=== PATIENT | male | born 1950 | race Caucasian/White ===

== ENCOUNTER 2020-07-17 08:56 | Emergency (ER) | payer OTHER, SELFPAY ==
--- NOTE | 2020-07-17 | XR_ITS ---
WS: [id number] RIGHT FOREARM 2 VIEWS HISTORY: FALL COMPARISON: None available. No fracture or dislocation. No foreign body or joint effusion. XR/XR forearm RT 2V [id number] IMPRESSION: Normal RIGHT forearm.
[2020-07-17 08:57] VITALS: BP 173/94; PULSE 76; RESP 16; O2SAT 97; BMI 24.3
--- NOTE | 2020-07-17 09:00 | CT_ITS ---
WS: [id number] CT HEAD NONCONTRAST HISTORY: Closed head injury. TECHNIQUE: Contiguous axial imaging performed through the brain in 2.5 mm imaging. Bone and soft tiss ue windows. Sagittal and coronal reformats reviewed. All CT scans at [facility] use at ast one of these dose optimization techniques: automated exposure control; mA and/or kV adjustment pe r patient size (includes targeted exams where dose is matched to clinical indication); or iterative r econstruction. DLP: 869.99 mGy.cm COMPARISON: None available. No acute intracranial hemorrhage, midline shift or mass effect. Mild atrophy and mild chronic microvascular ischemic disease. Ventricles: Normal size with no hydrocephalus. Paranasal sinuses: Mild diffuse nuchal periosteal thickening throughout the sinuses. No air-fluid lev els. Mastoid air cells: Well pneumatized. Calvarium and scalp: No fracture. Significant soft tissue injury and laceration over the RIGHT fronta l bone. Laceration extends to the calvarium. CT/CT head wo con* [id number] IMPRESSION: 1. No acute intracranial hemorrhage. 2. Significant soft tissue laceration extending to the calvarium centered over the RIGHT frontal bone. No skull fracture.
[2020-07-17 09:02] VITALS: BP 170/94; PULSE 74; RESP 16; O2SAT 99
[2020-07-17] MEDS: tetanus-dipt-pertussis 0.5 mL SDV IM (09:39)
--- NOTE | 2020-07-17 09:41 | ED_ITS ---
Documented by User: Vinay Mondragon DO 07/17/20 11:10 HPI - Wound/Laceration General: Chief Complaint: Wound/Laceration Stated Complaint: LACERATION Time Seen by Provider: 07/17/20 08:57 History of Present Illness: HPI narrative: 69-year-old male who was working and hit his head on the rack of a forklift. He is a large avulsion on forehead. There is no loss consciousness bleeding is well controlled is not on any blood thinners. He is unsure of his last tetanus. He does complain of some R wrist pain as well. Onset (ago): minute(s) Location: face Extremity Location: Right: forearm Place: work Patient tetanus UTD: No Context: accidental Associated symptoms: Reports pain; Denies chills, fever(s), foreign body sensation, inability to move, nausea, numbness, syncope or vomiting Review of Systems Const: Denies: fever(s) or chills ENMT: Denies: throat pain, ear or mastoid pain, nasal discharge or nasal congestion Card: Denies: syncope Resp: Denies: dyspnea, productive cough or non-productive cough GI: Denies: nausea or vomiting : Denies: flank pain, dysuria, urinary frequency or urinary urgency Skin/Breast: Denies: rash or pruritus Physical Exam Const: COMMON NORMALS: no acute distress GENERAL APPEARANCE: cooperative and comfortable ORIENTATION/CONSCIOUSNESS: Yes awake, Yes oriented to person, Yes oriented to place and Yes oriented to time HENMT: COMMON NORMALS: normocephalic and hearing grossly normal bilaterally HEAD & SCALP: normocephalic FACE & SINUS IMAGES: 1. Eye: COMMON NORMALS: Equal, round and reactive pupils present, EOMs intact bilaterally, conjunctivae normal and no scleral icterus CONJUNCTIVA: Yes conjunctivae normal PUPIL: Yes Equal, round and reactive pupils present Neck/C-Spine: COMMON NORMALS: full ROM, no lymphadenopathy, supple and no JVD Resp: COMMON NORMALS: normal respiratory effort, No retractions, No use of accessory muscles and clear to auscultation bilaterally AUSCULTATION: clear to auscultation bilaterally Cardio: COMMON NORMALS: no JVD, regular rate, regular rhythm and No murmurs present (Cardio) RATE: regular rate RHYTHM: regular rhythm GI: COMMON NORMALS: Soft to palpation and No hepatosplenomegaly present AUSCULTATION: Yes normoactive bowel sounds PALPATION: Yes Soft to palpation, No Tenderness to palpation present (GI), No Guarding due to palpation present (GI) and Yes No hepatosplenomegaly present Extremity: COMMON NORMALS: normal to inspection, capillary refill normal, no clubbing, cyanosis or edema, no calf tenderness and no pedal edema Neuro: SENSORIUM/ORIENTATION: Yes oriented to person, Yes oriented to place and Yes oriented to time Skin: NARRATIVE SKIN EXAM: Forehead laceration with no active bleeding. Course Vital Signs: Vital signs: Vital Signs Pulse Rate 76 07/17/20 10:50 Respiratory Rate 12 07/17/20 10:50 Blood Pressure 125/83 07/17/20 10:50 Pulse Oximetry 97 07/17/20 10:50 MDM - Wound/Laceration MDM Narrative: Medical decision making narrative: Wound sutured by midlevel. Evaluated wound after the suture wound wound edges well approximated no signs of active bleeding. Wound care instructions given sutures removed in 7 to 10 days. Discharge Plan Discharge Patient Disposition: Home Clinical Impression: Laceration Condition: Stable Prescriptions: New mupirocin 2 % ointment 1 applic topical BID Qty: 22 RF: 0 Discharge Orders: Discharge ED (Routine); Ordered 07/17/20 Ordered By: Vinay Mondragon Referrals: Yunior Caraballo [Primary Care Provider] - Patient Instructions: Opioid Safety Activity Restrictions/Additional Instructions: Routine wound care apply clean dressing daily. Apply topical ointment to laceration and abraded areas once daily. Sutures out in 7 to 10 days. Coding Level of Care Code ED Datapower Developer for Chg Fwd Exam Comprehensive Documented by User: DEANNA Neely 07/17/20 10:15 HPI - Wound/Laceration General: Chief Complaint: Wound/Laceration Stated Complaint: LACERATION Time Seen by Provider: 07/17/20 08:57 Physical Exam HENMT: HEAD & SCALP: other (upside down V shaped flap laceration to central forehead) FACE & SINUS IMAGES: 1. Procedures Laceration Laceration 1: Site: scalp Size (cm): 9.0 Description: linear and flap Depth: simple, single layer Local Anesthetic: lidocaine 1% and with epi Amount of anesthesia used (mL): 4.0 Pre-repair: wound explored and irrigated extensively Skin layer closed with: nylon Size (cm): 5-0 Number of sutures: 14 Technique: simple, interrupted Course Vital Signs: Vital signs: Vital Signs Pulse Rate 76 07/17/20 10:50 Respiratory Rate 12 07/17/20 10:50 Blood Pressure 125/83 07/17/20 10:50 Pulse Oximetry 97 07/17/20 10:50 MDM - Wound/Laceration MDM Narrative: Medical decision making narrative: I was consulted by Dr. Mondragon to repair patient's forehead laceration. This was completed as documented. Other than laceration repair, I did not actively participate in patient's care. Discharge Plan Discharge Patient Disposition: Home Clinical Impression: Laceration Condition: Stable Prescriptions: New mupirocin 2 % ointment 1 applic topical BID Qty: 22 RF: 0 Discharge Orders: Discharge ED (Routine); Ordered 07/17/20 Ordered By: Vinay Mondragon Referrals: Yunior Caraballo [Primary Care Provider] - Patient Instructions: Opioid Safety Activity Restrictions/Additional Instructions: Routine wound care apply clean dressing daily. Apply topical ointment to laceration and abraded areas once daily. Sutures out in 7 to 10 days. Coding Level of Care Code ED Datapower Developer for [place] Fwd Exam Comprehensive
[2020-07-17] MEDS: ceFAZolin 1,000 mg SDV 1000 MG IVP (09:46)
[2020-07-17] MEDS: lidocaine 2% INJ 20 mL INJECTION (09:47)
[2020-07-17 10:50] VITALS: BP 125/83; PULSE 76; RESP 12; O2SAT 97
--- NOTE | 2020-07-17 10:50 | PC.NURSE ---
Pts head was bandaged with 4x4s, kerlix, and coban.
--- NOTE | 2020-07-27 08:20 | PC.NURSE ---
Removed patients sutures and applied new bandage. Wound appears to be healing well
== END 2020-07-17 10:53 | disposition home or self-care (01) ==
PROVIDERS: Emergency Provider Family Medicine; PCP Family Medicine
DX: S01.81XA Laceration without foreign body of other part of head, initial encounter (principal); W22.8XXA Striking against or struck by other objects, initial encounter; Z23 Encounter for immunization
CPT/HCPCS: 12015; 70450; 73090; 90471; 90715; 96374; 99283; J0690

== ENCOUNTER → 2020-11-09 08:43 | Outpatient (BNVA) | payer OTHER, SELFPAY | PROVIDERS: PCP Family Medicine; Visit Provider Surgery | DX: K40.20 Bilateral inguinal hernia, without obstruction or gangrene, not specified as recurrent (principal); Z20.822 Contact with and (suspected) exposure to COVID-19 | CPT/HCPCS: 87635 ==

== ENCOUNTER 2020-11-15 05:44 | Day surgery (SDC) | payer OTHER, SELFPAY ==
[2020-11-14 13:13] VITALS: BMI 24.3
[2020-11-15] VITALS (8 sets, daily range): BP systolic 107–150; BP diastolic 65–80; PULSE 62–79; RESP 17–19; TEMP 36.2–36.8; O2SAT 95–97
[2020-11-15] MEDS: sodium chloride 0.9% 1,000 ML 30 ML IV (06:25)
--- NOTE | 2020-11-15 06:52 | W.PM.OPSUD ---
Surgery/Procedure H&P Update DATE OF PROCEDURE: November 15, 2020 DATE H&P PERFORMED: 10/24/20 H&P UPDATE INFORMATION: I have reviewed H&P completed within last 30 days, I have examined patient prior to procedure and No changes to prior documentation PREOP DIAGNOSIS: Bilateral inguinal hernia PLANNED PROCEDURE: Operation Date: 11/15/20 07:00 Proposed Procedures p lap poss open bilateral inguinal hernia 22218 k40.20(Bilateral) - Agustin Rodriguez MD
--- NOTE | 2020-11-15 07:01 | ANES.PREANE2 ---
Pre-Anesthetic Assessment Pre-Anesthetic Assessment: Height/Weight: Height 1.88 m Weight 86.183 kg Temp Pulse Resp BP Pulse Ox 97.6 F 79 18 150/80 97 11/15/20 06:21 11/15/20 06:21 11/15/20 06:21 11/15/20 06:21 11/15/20 06:21 Preop Diagnosis: Bilateral inguinal hernia Proposed Procedure: Operation Date: 11/15/20 07:00 Proposed Procedures p lap poss open bilateral inguinal hernia 25224 k40.20(Bilateral) - Agustin Rodriguez MD Was Beta Chavez taken within 24 hours: Yes Was Clonidine taken within 24 hours: N/A Last intake: Intake Last Liquid Date 11/14/20 Last Liquid Time 18:00 Last Solid Date 11/14/20 Last Solid Time 18:00 Social: Social History: No alcohol and No tobacco Exam: Pre-Anes Outpt Exam: alert, oriented x 3, clear to auscultation bilaterally and regular rate & rhythm Airway: Submandibular: WNL Cervical ROM: WNL MP: 2 Dentition: False CV/HEM: CV/HEM: HTN GI: GI: GERD Metabolic: Metabolic: Hyperlipidemia Anesthetic Plan: ASA status: 2 Anesthesia: General Risk of > 500 ml blood loss (7ml/kg in children): No Meds/Allergies Current Medications: Current Medications Generic Name Dose Route Start Last Admin Trade Name Freq PRN Reason Stop Dose Admin Sodium Chloride 1,000 mls @ 30 ml s/hr 11/15/20 06:15 11/15/20 06:25 Sodium Chloride 0.9% IV 11/16/20 06:14 30 mls/hr .Q24H REBA Administration PFSH Anesthesia PFSH: Medical History Hx of colonic polyp Surgical History Hx of nasal polypectomy Status post colonoscopy Family History Father CAD (coronary artery disease) Family history of premature coronary artery disease Hypertension Hyperlipidemia Sister CAD (coronary artery disease) Mother Hypertension Denies family history of Diabetes Clotting disorder Dementia Psychiatric illness Chronic kidney disease (CKD) Suicide Anesthesia complication Bleeding disorder Lung disease Cancer Stroke Social History Smoking and tobacco status: current every day smoker cigarettes [ Other cigarette details: 3 packs a week ] Alcohol intake: never Data Anesthesia Cardiac Studies: No Data to Display
--- NOTE | 2020-11-15 08:39 | P.OP_ITS ---
Operative Report Date of procedure: November 15, 2020 Pre-op Diagnosis: Bilateral inguinal hernia Post-op Diagnosis: 1. Large indirect left inguinal hernia 2. Small direct right inguinal hernia Procedure Done: Laparoscopic total extraperitoneal repair of left indirect and right direct inguinal hernia with 15 x 10 cm Ultrapro mesh x 2 Pathology: none sent Surgeon: Agustin Rodriguez Anesthesia: General Estimated blood loss (mL): 10 Condition: stable Disposition: PACU Procedure: The patient was taken to the operating room. After IV antibiotic was administered, the abdomen was prepped and draped in a sterile manner. Using a 15 blade, a 1.0 cm transverse incision was made infraumbilically on the left side. Subcutaneous tissue was divided using electrocautery and the anterior rectus sheath divided using an 11 blade. The rectus muscle was retracted laterally and the extraperitoneal space identified. A balloon dissector was insufflated under direct visualization to dissect the extraperitoneal space. A 11 mm port was placed and 15 mm of pneumoperitoneum was created. A 10 mm 30? scope was introduced and the retrorectus space was opened using the camera up to the pubic symphysis and 5 mm ports were placed in the midline, one 2- fingerbreadths above the pubic symphysis and the other midway between these two ports under direct visualization. Blunt dissection was carried out to open up the tissue in the midline and to the pubic symphysis, which was identified. The dissection was then carried laterally on the left where the iliopubic tract was identified. There was no femoral, obturator or direct hernia noted. The inferior epigastric artery was identified and dissection was carried posterior to it and laterally, the space was opened up to the level of the umbilicus superior to the anterior superior iliac spine. I then proceeded to dissect out the spermatic cord and the large indirect hernial sac was reduced . The dissection was carried laterally on the right side where the iliopubic tract was identified. There was no femoral or obturator hernia noted. There was a small direct hernia which was reduced. The inferior epigastric artery was identified and dissection was carried posterior to it and laterally, the space was opened up to the level of the umbilicus superior to the anterior superior iliac spine. I then proceeded to dissect out the spermatic cord and there was no indirect hernia. 15 x 10cm Ultrapro mesh was rolled and introduced through the 10 mm port and then rolled laterally and apposed well against the abdominal wall to cover the myopectineal orifice completely on the left side and secured with Securestraps. Another 15 x 10cm Ultrapro mesh was rolled and introduced through the 10 mm port and rolled laterally and apposed well against the abdominal wall to cover the myopectineal orifice completely on the right side and secured with Securestraps. 10 Cc of 0.5% Marcaine was infiltrated into the preperitoneal space. The extraperitoneal space was desufflated under direct visualization to ensure no slippage of hernial sac under the mesh. All ports were removed, the anterior rectus fascia at the infraumbilical port closed using figure of eight 0 Vicryl sutures, subcutaneous tissue approximated using 3-0 Vicryl sutures and skin at all three port sites were closed using running subcuticular 4-0 Monocryl sutures and Dermabond. 10 mL of 0.5% Marcaine was infiltrated at the port sites. The patient was stable throughout the procedure, extubated and transferred to recovery room.
[2020-11-15] MEDS: HYDROcodone-acetaminophen 5-325 mg Tablet 1 TAB PO (09:02)
[2020-11-15] MEDS: ondansetron 2 mg/ML SDV 2 mL 4 MG IVP (09:17)
--- NOTE | 2020-11-15 14:00 | ANE.PACU2 ---
Inpatient post-anesthesia follow up: Airway intact: Yes Vital signs: Temperature 97.6 F Pulse Rate 69 Respiratory Rate 18 Blood Pressure 128/75 Pulse Oximetry 96 Oxygen Delivery Me thod Room Air Oxygen Flow Rate 6 Fraction of Inspir ed Oxygen Hydration adequate: Yes Nausea and vomiting: No Pain level: 1 Mental status: Baseline
== END 2020-11-15 09:31 | disposition home or self-care (01) ==
PROVIDERS: PCP Family Medicine; Visit Provider Surgery
PROC: (CPT 49650; principal; 2020-11-15 07:00)
DX: K40.20 Bilateral inguinal hernia, without obstruction or gangrene, not specified as recurrent (principal); I10 Essential (primary) hypertension; K21.9 Gastro-esophageal reflux disease without esophagitis; E78.5 Hyperlipidemia, unspecified; Z86.010 Personal history of colon polyps; F17.210 Nicotine dependence, cigarettes, uncomplicated
CPT/HCPCS: 49650; 96372; J0690; J1100; J2405; J2704; J2710; J3010; J3490; J7030

== ENCOUNTER 2021-06-21 15:04 | Outpatient (CLI) | payer OTHER, SELFPAY ==
--- NOTE | 2021-06-21 15:12 | XR_ITS ---
WS: [id number] Exam: XR chest 2V* [id number] Date/Time of Exam: 06/21/2021 3:20 PM Reason For Exam: Shortness of breath Comparison 05/09/2021. The lungs are fully expanded and clear. Normal cardiomediastinal silhouette and regional bony element s. Scattered calcified granulomas. XR/XR chest 2V* [id number] IMPRESSION: 1. No acute cardiopulmonary finding. No change.
[2021-06-21 16:03] LABS: Basophils % 0.4 %; Eosinophils # 0.4 10^3/uL (0.0-0.8); Eosinophils % 4.7 %; Hematocrit 44.1 % (42.0-52.0); Hemoglobin 14.7 g/dL (11.7-16.6); Lymphocytes # 3.9 10^3/uL (0.8-4.8); Lymphocytes % 41.1 %; Mean Corpuscular HGB Conc 33.3 g/dL (30.0-36.0); Mean Corpuscular Hemoglobin 30.5 pg (28.0-34.0); Mean Corpuscular Volume 91.5 fl (80-94); Mean Platelet Volume 9.4 fL (7.4-10.4); Monocytes # 0.8 10^3/uL (0.2-0.9); Monocytes % 8.6 %; Neutrophils # 4.24 10^3/uL (1.8-7.7); Neutrophils % 45.1 %; Nucleated Red Blood Cells % 0 %; Platelet Count 279 10^3/cmm (130-400); Red Blood Count 4.82 10^6/uL (4.1-5.3); Red Cell Distribution Width 13.6 % (12.1-15.1); White Blood Count 9.4 10^3/uL (4.0-10.0)
[2021-06-22 14:33] LABS: Alternaria Alternata (M6) Ige <0.10 kU/L; Alternaria Class 0; Bermuda Class 0; Bermuda Grass (G2) Ige <0.10 kU/L; Cat Dander (E1) Ige <0.10 kU/L; Cat Dander Class 0; Common Ragweed (Short) (W1) Ig 1.27 kU/L; D. Farinae Class 1; Dermatophagoides Class 1; Dermatophagoides Farinae (D2) 0.42 kU/L; Dermatophagoides Pteronyssinus 0.52 kU/L; Dog Dander (E5) Ige <0.10 kU/L; Dog Dander Class 0; Elm (T8) Ige <0.10 kU/L; Elm Class 0; English Plantain (W9) Ige <0.10 kU/L; English Plantain Class 0; House Dust (Greer) (H1) Ige <0.10 kU/L; House Dust (Hollister- Stier) <0.10 kU/L; House Dust Class 0; Immunoglobulin E 21 kU/L (<OR=114); Immunoglobulin E 23 kU/L (<OR=114); Johnson Grass (G10) Ige <0.10 kU/L; Johnson Grass Cl 0; June Grass Class 0; June Grass(Kentucky Blue) (G8) <0.10 kU/L; Lamb'S Quarters (Goose Foot) <0.10 kU/L; Lamb'S Quarters Class 0; Maple (Box Elder) (T1) Ige <0.10 kU/L; Maple Class 0; Meadow Fescue (G4) Ige <0.10 kU/L; Meadow Fescue Class 0; Mucor Racemosus Class 0; Oak (T7) Ige <0.10 kU/L; Oak Class 0; Orchard Grass (Cocksfoot) (G3) <0.10 kU/L; Penicillium Class 0; Penicillium Notatum (M1) Ige <0.10 kU/L; Perennial Rye Grass (G5) Ige <0.10 kU/L; Perennial Rye Grass Class 0; Ragweeed Class 2; Rough Marsh Elder (W16) Ige <0.10 kU/L; Rough Marsh Elder Class 0; Sweet Vernal Class 0; Sweet Vernal Grass (G1) Ige <0.10 kU/L; Timothy Grass (G6) Ige <0.10 kU/L; Timothy Grass Class 0
== END 2021-06-21 15:05 | disposition home or self-care (01) ==
LOC: RAD 15:08
PROVIDERS: PCP Family Medicine; Visit Provider Internal Medicine Critical Care Medicine
DX: R06.02 Shortness of breath (principal); J45.909 Unspecified asthma, uncomplicated
CPT/HCPCS: 36415; 71046; 82785; 85025; 86003

== ENCOUNTER → 2021-08-27 12:05 | Outpatient (BNVA) | payer OTHER, SELFPAY | PROVIDERS: PCP Family Medicine; Visit Provider Internal Medicine Critical Care Medicine | DX: J45.909 Unspecified asthma, uncomplicated (principal); J84.10 Pulmonary fibrosis, unspecified | CPT/HCPCS: 99213; 99214 ==

== ENCOUNTER 2021-09-25 10:34 | Outpatient (CLI) | payer OTHER, SELFPAY ==
--- NOTE | 2021-09-25 12:56 | PFTS_ITS ---
Date of Study:09/25/21 Date of Dictation: 09/27/2021 MECHANICS: Postbronchodilator forced vital capacity (FVC) is reduced Postbronchodilator FEV1 is reduced. FEV1/FVC is normal. There is significant response to bronchodilators FLOW VOLUME LOOP: normal . LUNG VOLUMES: Total lung capacity (TLC) is moderately reduced. Residual volume (RV) is reduced. DIFFUSING CAPACITY FOR CARBON MONOXIDE: Mildly reduced . INTERPRETATION: The spirometry is suggestive of moderate restriction. There is significant response to bronchodilators.? Lung volumes are moderately reduced.? Mild gas transfer defect. correlate clinically MTDD
== END 2021-09-25 10:35 | disposition home or self-care (01) ==
LOC: RT 10:35
PROVIDERS: PCP Family Medicine; Visit Provider Internal Medicine Critical Care Medicine
DX: J45.909 Unspecified asthma, uncomplicated (principal)
CPT/HCPCS: 94060; 94726; 94729; J7611

== ENCOUNTER 2021-10-10 09:49 | Emergency (ER) | payer OTHER, SELFPAY ==
[2021-10-10 10:12] VITALS: BP 161/87; PULSE 71; RESP 18; TEMP 36.6; O2SAT 98; BMI 25.7
[2021-10-10 10:29] LABS: Glucose Urine UA Norm (Normal); Ketones Urine 1+ (Negative); Protein Urine Trace (Negative); Urine Appearance Clear (CLEAR); Urine Color Yellow (Yellow); pH Urine 5 (5-7)
[2021-10-10 10:30] LABS: Add Urine Microscopic? YES; Bilirubin Urine Neg (Negative); Blood Urine 2+ (Negative); Leukocyte Esterase Urine Trace (Negative); Nitrate Urine Negative (Negative); Urobilinogen Urine Norm (Negative)
[2021-10-10 10:32] LABS: Renal Epithelial Cells Urine N /hpf; WBC Urine 0-4 /hpf (0-5)
[2021-10-10 10:34] LABS: Mucus Urine 1+ /hpf
[2021-10-10 10:36] LABS: Add Urine Culture? Yes
--- NOTE | 2021-10-10 10:48 | CT_ITS ---
WS: [id number] CT ABDOMEN AND PELVIS WITH CONTRAST HISTORY: unexplained hematuria TECHNIQUE: Imaging performed of the abdomen and pelvis with IV contrast. Single phase imaging of the abdomen. Coronal and sagittal reformats are submitted. All CT scans at [facility] use at [address] one of these dose optimization techniques: automated exposure control; mA and/or kV adjustment per patient size (includes targeted exams where dose is matched to clinical indication); or iterative re construction. IV CONTRAST: Omnipaque 300; 50 mL IV. Oral contrast: No DLP: 2184.2 mGy.cm COMPARISON: None available. Lower thorax: Lung bases are clear. Heart is normal size. No hiatal hernia. Liver/biliary system: Normal size liver with numerous granulomata. No mass identified. No bile duct d ilatation. Gallbladder: Normal. No gallstones or wall thickening. No pericholecystic fluid. Pancreas: Normal size pancreas and pancreatic duct. No adjacent inflammation. Spleen: Numerous granulomata. Adrenal glands: Normal. Right kidney: Normal size kidney with very mild cortical lobulation. No mass or calcification or obst ruction. Left kidney: There are 2 cortical hypodense lesions in the mid to upper kidney. The largest measures 11 mm. These are not completely cystic by CT. No renal obstruction or ureteral calcification. Aorta: Mild atherosclerosis with no aneurysm. Lymphadenopathy: None. Free fluid: None. GI tract: Stomach is mildly distended. There is mild diffuse wall thickening of the stomach but no ma ss identified. In part this may be due to underdistention. No small bowel obstruction. The appendix i s normal. Normal appearance of the nondistended colon. Abdominal wall: Unremarkable abdominal wall. No hernia. Pelvis: Well-distended urinary bladder. There is minimal prostate gland encroachment into the base of the bladder. There is some very minima l wall thickening involving the posterior RIGHT lateral base of the bladder. Prostate gland appears s eparate with the fat plane the prostate from the bladder. This could be a very early bladd er lesion. On the coronal imaging this nodule measures approximately 7 mm. Bones: Degenerative disc disease is moderate at L4-5 and L5-S1. CT/CT abdomen pelvis w con* [id number] IMPRESSION: 1. No renal obstruction or hydronephrosis. 2. Two hypodense lesions in the LEFT kidney. These may be complex cysts but wi ll need further evaluation to exclude early malignancy. 3. Mild thickening with enhancement and nodularity involving the RIGHT posteri or base of the urinary bladder. Focal nodule seen best on the coronal imaging m easures 7 mm. Early bladder neoplasm is not excluded. Recommend urological eval uation. 4. Minimal prostate gland enlargement. 5. Normal appendix. 6. Hepatic and splenic granulomata. 7. Sigmoid diverticula without acute diverticulitis.
[2021-10-10 11:12] LABS: Basophils % 0.3 %; Eosinophils # 0.4 10^3/uL (0.0-0.8); Eosinophils % 4.2 %; Hematocrit 42.7 % (42.0-52.0); Hemoglobin 14.5 g/dL (11.7-16.6); Lymphocytes # 3.4 10^3/uL (0.8-4.8); Lymphocytes % 38.8 %; Mean Corpuscular Hemoglobin 30.6 pg (28.0-34.0); Mean Corpuscular Volume 90.1 fl (80-94); Mean Platelet Volume 9.4 fL (7.4-10.4); Monocytes # 0.9 10^3/uL (0.2-0.9); Monocytes % 9.6 %; Neutrophils # 4.14 10^3/uL (1.8-7.7); Neutrophils % 46.9 %; Nucleated Red Blood Cells % 0 %; Platelet Count 234 10^3/cmm (130-400); Red Blood Count 4.74 10^6/uL (4.1-5.3); Red Cell Distribution Width 14.9 % (12.1-15.1); White Blood Count 8.8 10^3/uL (4.0-10.0)
[2021-10-10 11:27] VITALS: BP 161/87; PULSE 71; RESP 18; O2SAT 98
[2021-10-10 11:28] LABS: Alanine Aminotransferase 25 U/L (0-41); Albumin Level 4.1 g/dL (3.5-5.2); Alkaline Phosphatase 75 IU/L (40-130); Anion Gap 13.8 (5-19); Aspartate Amino Transferase 31 U/L (0-40); Blood Urea Nitrogen 22 mg/dL (8-23); Calcium 9.3 mg/dL (8.5-10.5); Carbon Dioxide 26 mmol/L (22-29); Chloride 100 mmol/L (98-107); Globulin 3.3 g/dL (1.3-4.6); Glucose 107 mg/dL (65-115); Osmolality Calculated 286 mOsm/kg (285-295); Potassium 3.8 mmol/L (3.5-5.1); Sodium 136 mmol/L (136-145); Total Bilirubin 0.4 mg/dL (0.15-1.2); Total Protein 7.4 g/dL (6.6-8.7)
[2021-10-10] MEDS: iohexol 300 mg/mL 100 mL Btl IV (11:54)
--- NOTE | 2021-10-10 12:00 | W.ED.MALEGU ---
HPI - Male Genitourinary General: Chief complaint: Urogenital-Male Stated complaint: blood in urine/back pain Time Seen by Provider: 10/10/21 11:14 History of Present Illness: 70-year-old male presents with complaint of 1 month of intermittent gross hematuria. This has gotten a lot worse in the last 24 hours. Patient reports this morning after he went to the bathroom he noticed some dripping of blood out of his penis. He is an occasional smoker. He does not have any known history of kidney stones. He has had about 7 out of 10 back pain which is nonspecific in the low middle back. He has not had any previous work-up for this. He denies difficulty urinating. This morning he had burning with urination. He has not on any anticoagulation. He does not have a family history of any renal cell carcinoma. Associated symptoms: Deny nausea or vomiting Review of Systems General: Reports: 10 or more systems reviewed and unremarkable except in HPI and below Const: Denies: fever(s), chills or body aches Card: Denies: chest pain, edema or syncope Resp: Denies: dyspnea or productive cough GI: Denies: abdominal pain, nausea, vomiting or diarrhea Musc: Denies: neck pain, extremity pain or extremity swelling Skin/Breast: Denies: rash or erythema Neuro: Denies: headache(s), numbness in extremities or weakness in extremities PFSH ED PFSH: Medical History Hx of colonic polyp Surgical History Hx of nasal polypectomy S/P bilateral inguinal hernia repair (11/15/20) Status post colonoscopy Family History Father CAD (coronary artery disease) Family history of premature coronary artery disease Hypertension Hyperlipidemia Sister CAD (coronary artery disease) Mother Hypertension Denies family history of Diabetes Clotting disorder Dementia Psychiatric illness Chronic kidney disease (CKD) Suicide Anesthesia complication Bleeding disorder Lung disease Cancer Stroke Social History Smoking and tobacco status: current some day smoker cigarettes [ Other cigarette details: 3 packs a week] Alcohol intake: never Physical Exam Const: COMMON NORMALS: no limitations, alert and well nourished EXAM LIMITATIONS: no altered mental status GENERAL APPEARANCE: cooperative and well developed ORIENTATION/CONSCIOUSNESS: Yes awake; not confused HENMT: COMMON NORMALS: normocephalic, atraumatic, external ears normal and Normal external nose present HEAD & SCALP: normocephalic and atraumatic NOSE: Normal external nose present EXTERNAL EAR: Yes external ears normal Eye: COMMON NORMALS: EOMs intact bilaterally and conjunctivae normal CONJUNCTIVA: Yes conjunctivae normal Neck/C-Spine: COMMON NORMALS: no JVD Resp: COMMON NORMALS: normal respiratory effort, No use of accessory muscles and clear to auscultation bilaterally EFFORT & INSPECTION: Yes able to speak in complete sentences and Yes symmetric chest movement AUSCULTATION: clear to auscultation bilaterally Cardio: COMMON NORMALS: no JVD, regular rate and regular rhythm RATE: regular rate RHYTHM: regular rhythm GI: COMMON NORMALS: Soft to palpation INSPECTION: Yes normal to inspection PALPATION: Yes Soft to palpation, No Tenderness to palpation present (GI) and No Guarding due to palpation present (GI) Back/Pelvis: COMMON NORMALS: thoraco-lumbar ROM normal Extremity: COMMON NORMALS: normal to inspection GENERAL: Yes normal exam except as noted Neuro: COMMON NORMALS: moves all extremities, no focal motor deficits and no sensory deficits noted SENSORIUM/ORIENTATION: Yes alert Psych: COMMON NORMALS: mental status grossly normal, Normal thought process present, cooperative, normal affect and speech normal SPEECH: Yes normal speech THOUGHT PROCESS: Normal thought process present Skin: COMMON NORMALS: no rashes or lesions noted, turgor normal and no jaundice GENERAL SKIN EXAM: no rashes or lesions noted and turgor normal Course Vital Signs: Vital signs: Vital Signs Temperature 97.8 F 10/10/21 10:12 Pulse Rate 71 10/10/21 11:27 Respiratory Rate 18 10/10/21 11:27 Blood Pressure 161/87 10/10/21 11:27 Pulse Oximetry 98 10/10/21 11:27 [facility] - Male Medical Decision Making 70-year-old male with gross hematuria. He has had back pain for about 1 month. Today he developed dysuria along with increased gross hematuria. His urine analysis obtained in triage does not show any urinary tract infection but does demonstrate red blood cells. The differential diagnosis would include bladder cancer, cystitis, ureterolithiasis, renal cell carcinoma, other renal pathology, prostatitis, renal infarct, partial urethral obstruction, other. Will obtain CT scan of the abdomen pelvis with contrast to evaluate for the aforementioned pathologies. If this is negative, patient will need to be referred to a urologist for uroscopy. Medical Records CT scan demonstrated mild thickening with enhancement and nodularity involving the right posterior base of the urinary bladder. There is also 2 hypodense lesions in the left kidney that could be complex cysts but need further evaluation to exclude early malignancy. The patient's bladder was distended on CT scan however he was able to urinate again in the emergency department. He said he had some stinging but there was no further gross hematuria. I discussed the case with Dr. Hidalgo, urology. Dr. Hidalgo has accepted the patient in follow-up. Patient will be discharged at this time. His aspirin will be held. Lab Data : 10/10/21 11:00 10/10/21 11:00 Radiology Impressions Abdomen/Pelvis CT 10/10/21 10:48 IMPRESSION: 1. No renal obstruction or hydronephrosis. 2. Two hypodense lesions in the LEFT kidney. These may be complex cysts but will need further evaluation to exclude early malignancy. 3. Mild thickening with enhancement and nodularity involving the RIGHT posterior base of the urinary bladder. Focal nodule seen best on the coronal imaging measures 7 mm. Early bladder neoplasm is not excluded. Recommend urological evaluation. 4. Minimal prostate gland enlargement. 5. Normal appendix. 6. Hepatic and splenic granulomata. 7. Sigmoid diverticula without acute diverticulitis. Laboratory Results WBC 8.8 10^3/uL (4.0-10.0) 10/10/21 11:00 RBC 4.74 10^6/uL (4.1-5.3) 10/10/21 11:00 Hgb 14.5 g/dL (11.7-16.6) 10/10/21 11:00 Hct 42.7 % (42.0-52.0) 10/10/21 11:00 MCV 90.1 fl (80-94) 10/10/21 11:00 MCH 30.6 pg (28.0-34.0) 10/10/21 11:00 MCHC 34.0 g/dL (30.0-36.0) 10/10/21 11:00 RDW 14.9 % (12.1-15.1) 10/10/21 11:00 Plt Count 234 10^3/cmm (130-400) 10/10/21 11:00 MPV 9.4 fL (7.4-10.4) 10/10/21 11:00 Neut % (Auto) 46.9 % 10/10/21 11:00 Lymph % (Auto) 38.8 % 10/10/21 11:00 [place] % (Auto) 9.6 % 10/10/21 11:00 Eos % (Auto) 4.2 % 10/10/21 11:00 Baso % (Auto) 0.3 % 10/10/21 11:00 Neut # (Auto) 4.14 10^3/uL (1.8-7.7) 10/10/21 11:00 Lymph # (Auto) 3.4 10^3/uL (0.8-4.8) 10/10/21 11:00 [place] # (Auto) 0.9 10^3/uL (0.2-0.9) 10/10/21 11:00 Eos # (Auto) 0.4 10^3/uL (0.0-0.8) 10/10/21 11:00 Baso # (Auto) 0.0 10^3/uL (0.0-0.1) 10/10/21 11:00 Nucleated RBC % (auto) 0 % 10/10/21 11:00 Nucleated RBCs # 0.0 /100WBC 10/10/21 11:00 Sodium 136 mmol/L (136-145) 10/10/21 11:00 Potassium 3.8 mmol/L (3.5-5.1) 10/10/21 11:00 Chloride 100 mmol/L (98-107) 10/10/21 11:00 Carbon Dioxide 26 mmol/L (22-29) 10/10/21 11:00 Anion Gap 13.8 (5-19) 10/10/21 11:00 BUN 22 mg/dL (8-23) 10/10/21 11:00 Creatinine 1.1 mg/dL (0.7-1.2) 10/10/21 11:00 GFR Calculation Not Reportable 10/10/21 11:00 Glucose 107 mg/dL (65-115) 10/10/21 11:00 Calculated Osmolality 286 mOsm/kg (285-295) 10/10/21 11:00 Calcium 9.3 mg/dL (8.5-10.5) 10/10/21 11:00 Total Bilirubin 0.4 mg/dL (0.15-1.2) 10/10/21 11:00 AST 31 U/L (0-40) 10/10/21 11:00 ALT 25 U/L (0-41) 10/10/21 11:00 Alkaline Phosphatase 75 IU/L (40-130) 10/10/21 11:00 Total Protein 7.4 g/dL (6.6-8.7) 10/10/21 11:00 Albumin 4.1 g/dL (3.5-5.2) 10/10/21 11:00 Globulin 3.3 g/dL (1.3-4.6) 10/10/21 11:00 Urine Color Yellow (Yellow) 10/10/21 10:00 Urine Appearance Clear (CLEAR) 10/10/21 10:00 Urine pH 5 (5-7) 10/10/21 10:00 Ur Specific [place] 1.020 (1.005-1.030) 10/10/21 10:00 Urine Protein Trace (Negative) 10/10/21 10:00 Urine Glucose (UA) Norm (Normal) 10/10/21 10:00 Urine Ketones 1+ (Negative) H 10/10/21 10:00 Urine Blood 2+ (Negative) H 10/10/21 10:00 Urine Nitrate Negative (Negative) 10/10/21 10:00 Urine Bilirubin Neg (Negative) 10/10/21 10:00 Urine Urobilinogen Norm mg/dL (Negative) 10/10/21 10:00 Ur Leukocyte Esterase Trace (Negative) H 10/10/21 10:00 Urine RBC 10-15 /hpf (0-2) H 10/10/21 10:00 Urine WBC 0-4 /hpf (0-5) H 10/10/21 10:00 Ur Squamous Epith Cells None /hpf (0-5) 10/10/21 10:00 Ur Transition Epith Cell None /hpf 10/10/21 10:00 Ur Renal Epithelial Cell N /hpf 10/10/21 10:00 Amorphous Sediment Not Reportable 10/10/21 10:00 Urine Bacteria None /hpf (NONE) 10/10/21 10:00 Urine Mucus 1+ /hpf 10/10/21 10:00 Discharge Plan Discharge Patient Disposition: Home Clinical Impression: Hematuria Condition: Stable Prescriptions: Held aspirin 81 mg Capsule,Delayed Release(Dr/Ec) PO 0RF Hold Instructions: Resume on 10/17/21. Hold until after seeing Dr Hidalgo No Action albuterol sulfate 90 mcg/actuation HFA aerosol inhaler 2 puff inhalation Q6H PRN0RF cetirizine 10 mg tablet 10 mg PO DAILY PRN0RF docusate sodium [Colace] 100 mg capsule 100 mg PO BID 0RF fluticasone propion-salmeterol [Advair Diskus] 250-50 mcg/dose blister with device 1 inh inhalation BID 30 Days Qty: 60 3RF clobetasol 0.05 % ointment 1 applic topical BID Qty: 60 1RF Rx Instructions: Apply to affected areas on leg no more than 3 wks/mo prn atorvastatin 40 mg Tablet 40 mg PO DAILY 0RF ketotifen fumarate 0.025 % (0.035 %) Drops 0RF chlorthalidone 25 mg Tablet 25 mg PO DAILY 0RF amlodipine 5 mg Tablet 5 mg PO DAILY 0RF allopurinol 100 mg Tablet 200 mg PO DAILY 0RF metoprolol tartrate 50 mg Tablet 25 mg PO BID 0RF lisinopril 40 mg Tablet 40 mg PO DAILY 0RF omeprazole 20 mg PO DAILY 0RF Discharge Orders: Discharge ED (Routine); Ordered 10/10/21 Ordered By: Mauri Butcher Referrals: Lindsay Barbour MD [Primary Care Provider] - Lupillo Hidalgo MD [Physician] - (Hematuria, bladder thickened) Discharge Diet: Usual diet Discharge Activity: Resume usual activity Patient Instructions: Cystoscopy, Hematuria (ED), Bladder Biopsy (DC), Opioid Safety Activity Restrictions/Additional Instructions: Hold your aspirin. Keep sidhu in place to help drain the blood and urine. Return to ER for inability to urinate, fever, or severe pain. Make appointment with Dr Hidalgo for this week. Coding Level of Care Code ED Lumber Straightened for Chg Fwd Exam Comprehensive
--- NOTE | 2021-10-11 15:47 | DCPLANNER ---
Addendum entered by Whitley Barger 10/18/21 15:01: Patient had a follow up appointment scheduled for 10.11.21 with urology - patient did attend appointment. Addendum entered by Whitley Barger 10/15/21 07:59: manager local sent patients information to [facility] with [facility] for the authorization process to get started. Original Note: manager local had message to schedule a follow up appointment for patient with urology. manager local sent patients information to the front office space at urology. Patients information will be printed and reviewed. Clinic will call patient with appointment information.
== END 2021-10-10 13:27 | disposition home or self-care (01) ==
PROVIDERS: Family Medicine; Emergency Provider Emergency Medicine; PCP Family Medicine
DX: R31.9 Hematuria, unspecified (principal); F17.210 Nicotine dependence, cigarettes, uncomplicated
CPT/HCPCS: 74177; 80053; 81001; 85025; 87086; 99283; Q9967

== ENCOUNTER → 2021-10-11 14:35 | Outpatient (BNVA) | payer OTHER, SELFPAY | PROVIDERS: PCP Family Medicine; Visit Provider Urology | DX: N32.89 Other specified disorders of bladder (principal); R31.0 Gross hematuria | CPT/HCPCS: 52000; 99202 ==

== ENCOUNTER 2022-05-06 07:29 | Outpatient (CLI) | payer OTHER, SELFPAY ==
--- NOTE | 2022-05-06 08:00 | USCV_ITS ---
Dillon Kraig Age: 71 Gender: M : 1950 Exam Date: 05/06/2022 07:52 Ordering Phys: Cody Currie MD Technologist: Ariel Tejada Exam Location: [facility] [place] Indication: sob BP: 172 / 100 HR: 68 Rhythm: Sinus Technical Quality: Adequate MEASUREMENTS (Male / Female) Normal Values 2D ECHO LV Diastolic Diameter PLAX 2.8 cm 4.2 - 5.9 / 3.9 - 5.3 cm LV Systolic Diameter PLAX 1.9 cm IVS Diastolic Thickness 0.9 cm 0.6 - 1.0 / 0.6 - 0.9 cm IVS Systolic Thickness 0.7 cm LVPW Diastolic Thickness 1.0 cm 0.6 - 1.0 / 0.6 - 0.9 cm LVPW Systolic Thickness 1.2 cm LVOT Diameter 2.0 cm LV Ejection Fraction 2D Teich 62.8 % LV Ejection Fraction MOD 2C 60.8 % LV Ejection Fraction 2C AL 59.5 % LA Diameter 4.1 cm LA Width 3.0 cm LA Height 4.7 cm RA Width 3.8 cm RA Height 4.4 cm Aorta at Sinotubular Diameter 2.3 cm IVC Diameter 1.9 cm M-MODE Aortic Annulus Diameter 2.4 cm LA Ao Ratio MM 1.9 MV E Point Septal Separation 0.5 cm DOPPLER AV Peak Velocity 105.3 cm/s LVOT Peak Velocity 100.0 cm/s AV Area Cont Eq vti 3.1 cm squared AV Area Cont Eq pk 3.0 cm squared MV Peak Velocity 94.0 cm/s MV Area PHT 8.5 cm squared Mitral E to A Ratio 0.9 MV E' Velocity 40.0 cm/s Mitral E to MV E' Ratio 8.4 Mitral E to LV E' Lateral Ratio 7.9 Mitral E to LV E' Septal Ratio 9.1 TR Peak Velocity 250.7 cm/s TR Peak Gradient 25.1 mmHg TR Mean Velocity 208.4 cm/s TR Mean Gradient 18.3 mmHg TR Velocity Time Integral 76.0 cm Right Atrial Pressure 3.0 mmHg Pulmonary Artery Systolic Pressu 28.1 mmHg PV Peak Velocity 115.0 cm/s RV Acceleration Time 0.1 s RV Ejection Time 0.2 s RV AcT/ET 0.5 FINDINGS Left Ventricle Normal left ventricular size, systolic function and wall thickness, with no regional wall motion abnormalities. Left ventricular ejection fraction is estimated at 65 %. Normal diastolic function. Right Ventricle Normal right ventricular size and systolic function. Right ventricular systolic pressure 46 mmHg. Right Atrium Normal right atrial size. Left Atrium Normal left atrial size. Mitral Valve Mild mitral annular calcification. No mitral valve stenosis. Trace mitral valve regurgitation. Aortic Valve Structurally normal trileaflet aortic valve. No aortic valve stenosis. No aortic valve regurgitation. Tricuspid Valve Structurally normal tricuspid valve. No tricuspid valve stenosis. Trace tricuspid valve regurgitation. Pulmonic Valve Pulmonic valve not well visualized. No pulmonary valve stenosis. Trace pulmonary valve regurgitation. Pericardium No pericardial effusion. Aorta Normal size aortic root and proximal ascending aorta. IVC Normal IVC dimension with >50% respiratory change of the inferior vena cava. CONCLUSIONS 1. Normal left ventricular size, systolic function and wall thickness, with no regional wall motion abnormalities. Left ventricular ejection fraction is estimated at 65 %. Normal diastolic function. 2. Normal right ventricular size and systolic function. 3. Mild pulmonary hypertension with pulmonary artery pressure estimated at 46 mm Hg. 4. No prior similar studies to compare. Hayde Mcwilliams MD (Electronically Signed) Final Date: 11 May 2022 16:03 S
== END 2022-05-06 07:30 | disposition home or self-care (01) ==
PROVIDERS: PCP Family Medicine; Visit Provider Internal Medicine Critical Care Medicine
DX: R06.02 Shortness of breath (principal); I27.20 Pulmonary hypertension, unspecified
CPT/HCPCS: 93306

== ENCOUNTER → 2022-07-01 11:12 | Outpatient (BNVA) | payer OTHER, SELFPAY | PROVIDERS: PCP Family Medicine; Visit Provider Internal Medicine Pulmonary Disease | DX: R06.02 Shortness of breath (principal); J45.909 Unspecified asthma, uncomplicated; J84.10 Pulmonary fibrosis, unspecified; J31.0 Chronic rhinitis; J32.9 Chronic sinusitis, unspecified; G47.30 Sleep apnea, unspecified; J33.9 Nasal polyp, unspecified; I27.20 Pulmonary hypertension, unspecified; F17.210 Nicotine dependence, cigarettes, uncomplicated | CPT/HCPCS: 99214 ==

== ENCOUNTER 2022-08-29 05:29 | Outpatient (CLI) | payer OTHER, SELFPAY | END 2022-08-29 05:30 | disposition home or self-care (01) | LOC: SLEEP 08-30 05:30 | PROVIDERS: PCP Family Medicine; Visit Provider Internal Medicine Pulmonary Disease | DX: R06.83 Snoring (principal); R53.83 Other fatigue; G47.33 Obstructive sleep apnea (adult) (pediatric) | CPT/HCPCS: 95810 ==

== ENCOUNTER → 2022-10-07 10:36 | Outpatient (BNVA) | payer OTHER, SELFPAY | PROVIDERS: PCP Family Medicine; Visit Provider Dermatology | DX: L57.0 Actinic keratosis (principal); L82.1 Other seborrheic keratosis; L81.4 Other melanin hyperpigmentation; L57.8 Other skin changes due to chronic exposure to nonionizing radiation; Z85.828 Personal history of other malignant neoplasm of skin; Z87.891 Personal history of nicotine dependence | CPT/HCPCS: 17000; 17003; 99213 ==

== ENCOUNTER → 2022-10-10 13:30 | Outpatient (BNVA) | payer OTHER, SELFPAY | PROVIDERS: PCP Family Medicine; Visit Provider Urology | DX: R31.0 Gross hematuria (principal) | CPT/HCPCS: 51741; 51798; 81003; 99213 ==

== ENCOUNTER → 2022-11-12 15:09 | Outpatient (BNVA) | payer OTHER, SELFPAY | PROVIDERS: PCP Family Medicine; Visit Provider Internal Medicine Pulmonary Disease | DX: J45.909 Unspecified asthma, uncomplicated (principal); J84.10 Pulmonary fibrosis, unspecified; J31.0 Chronic rhinitis; J32.9 Chronic sinusitis, unspecified; G47.30 Sleep apnea, unspecified; J33.8 Other polyp of sinus; F17.210 Nicotine dependence, cigarettes, uncomplicated | CPT/HCPCS: 99214 ==

== ENCOUNTER 2023-06-15 10:04 | Emergency (ER) | payer OTHER, SELFPAY ==
[2023-06-15 10:11] VITALS: BP 139/109; PULSE 148; RESP 16; TEMP 37.1; O2SAT 98; BMI 26.3
--- NOTE | 2023-06-15 10:19 | W.ED.ARRPALP ---
HPI - Arrhythmia/Palpitations General: Chief Complaint: Arrhythmia/Palpitations Stated Complaint: high pulse Time Seen by Provider: 06/15/23 10:17 History of Present Illness: 72-year-old male presents emergency department stating that he has had feelings like his heart has been racing for the previous 2 days. He states this occurs intermittently. He states he has not had any recent medication changes and has no known reasons for his heart feeling like it is racing. He denies chest pain or shortness of breath at present. He denies nausea vomiting fevers chills or night sweats. Review of Systems General: Reports: 10 or more systems reviewed and unremarkable except in HPI and below Card: Reports: palpitations PFSH ED PFSH: Medical History Hx of colonic polyp Surgical History Hx of nasal polypectomy S/P bilateral inguinal hernia repair (11/15/20) Status post colonoscopy Family History Father CAD (coronary artery disease) Family history of premature coronary artery disease Hypertension Hyperlipidemia Sister CAD (coronary artery disease) Mother Hypertension Denies family history of Diabetes Clotting disorder Dementia Psychiatric illness Chronic kidney disease (CKD) Suicide Anesthesia complication Bleeding disorder Lung disease Cancer Stroke Social History Smoking and tobacco/nicotine status: current every day tobacco/nicotine user (1 pack per week) cigarettes [ Other cigarette details: 3 packs a week] Alcohol intake: never Substance/Drug Use: never Marital status: Current occupational status: employed Physical Exam Narrative: EXAM NARRATIVE: Constitutional: the patient appears well nourished and with normal development. Vital signs reviewed as documented. HENMT: Normocephalic, atraumatic. External ears normal appearance without drainage. Nose without drainage, normal appearance. Mucus membranes moist. Neck is supple, No jugular venous distension, trachea is midline, no appreciable carotid bruits. No lymphadenopathy. No meningeal signs. Flexion, extension and lateral rotation is without pain. Eyes: Pupils are equal, round, reactive to light and accommodation. No scleral icterus. Extra-ocular movement are intact. Thorax is symmetrical and with equal rise and fall with respirations. Resp: Lungs are clear to auscultation. No wheezes, rales, crackles or ronchi at present. Cardio: Regular rate and rhythm. Positive S1, S2. No appreciable murmurs, rubs or gallops. GI: Abdominal exam reveals normal bowel sounds to all quadrants. No organomegaly. No obvious palpable masses noted. No hepatomegally appreciated. Soft, non-tender to palpation. Extremity: Extremities are non-edematous and both femoral and pedal pulses are 2+ and equal bilaterally. Moves all extremities well, sensation in all extremities. Neuro: Alert and oriented x4, person, place, time and situation. Cranial nerves II through XII are grossly intact, there is no focal neurological deficits that I can appreciate at present. Motor strength in the upper and lower extremities are equal and bilateral 5/5. Psych: Cooperative, calm, normal thought process, appropriate judgment. Skin: No lesions, rashes. No gross abnormalities noted. Back: Symmetrical, no obvious deformity, No CVA tenderness Course Vital Signs: Vital signs: Vital Signs Temperature 98.7 F 06/15/23 13:12 Pulse Rate 98 06/15/23 13:12 Respiratory Rate 16 06/15/23 13:12 Blood Pressure 123/85 06/15/23 13:12 Pulse Oximetry 97 06/15/23 13:12 Oxygen Delivery Me thod Room Air 06/15/23 12:10 MDM - Arrhythmia/Palpitations Medical Decision Making 72-year-old male presents emergency department with complaints of palpitations I will obtain a twelve-lead EKG serial cardiac enzymes chest x-ray CBC and CMP to check for electrolytes. Differential diagnosis includes electrolyte abnormality, new onset cardiac abnormality, Medical Records I reviewed the patient's medical records. Lab Data I reviewed the patient's lab results. 06/15/23 10:29 06/15/23 10:29 Radiology Impressions Chest X-Ray 06/15/23 10:21 IMPRESSION: No acute findings. Laboratory Results WBC 12.93 10^3/uL (3.29-11.43) H 06/15/23 10:29 RBC 5.01 10^6/uL (3.85-5.65) 06/15/23 10:29 Hgb 15.90 g/dL (11.27-16.99) 06/15/23 10:29 Hct 46.5 % (37-53) 06/15/23 10: MCV 92.8 fl (82-101) 06/15/23 10: MCH 31.7 pg (27-33) 06/15/23 10: MCHC 34.2 g/dL (30-55) 06/15/23 10: RDW 14.8 % (12.1-15.1) 06/15/23 10: Plt Count 244 10^3/cmm (157-399) 06/15/23 10:29 MPV 9.9 fL (7.4-10.4) 06/15/23 10:29 Neut % (Auto) 62.5 % 06/15/23 10:29 Lymph % (Auto) 30.6 % 06/15/23 10:29 [place] % (Auto) 5.3 % 06/15/23 10:29 Eos % (Auto) 1.1 % 06/15/23 10: Baso % (Auto) 0.3 % 06/15/23 10:29 Neut # (Auto) 8.07 10^3/uL (1.8-7.7) H 06/15/23 10:29 Lymph # (Auto) 4.0 10^3/uL (0.8-4.8) 06/15/23 10:29 [place] # (Auto) 0.7 10^3/uL (0.2-0.9) 06/15/23 10:29 Eos # (Auto) 0.1 10^3/uL (0.0-0.8) 06/15/23 10:29 Baso # (Auto) 0.0 10^3/uL (0.0-0.1) 06/15/23 10:29 Nucleated RBC % (auto) 0 % 06/15/23 10: Nucleated RBCs # 0.0 /100WBC 06/15/23 10:29 Sodium 139 mmol/L (136-145) 06/15/23 10:29 Potassium 3.9 mmol/L (3.5-5.1) 06/15/23 10:29 Chloride 103 mmol/L (98-107) 06/15/23 10:29 Carbon Dioxide 22 mmol/L (22-29) 06/15/23 10:29 Anion Gap 17.9 (5-19) 06/15/23 10:29 BUN 23 mg/dL (8-23) 06/15/23 10: Creatinine 1.4 mg/dL (0.7-1.2) H 06/15/23 10:29 GFR Calculation Not Reportable 06/15/23 10: Glucose 184 mg/dL (65-115) H 06/15/23 10:29 Calculated Osmolality 296 mOsm/kg (285-295) H 06/15/23 10:29 Calcium 9.9 mg/dL (8.5-10.5) 06/15/23 10: Total Bilirubin 0.5 mg/dL (0.15-1.2) 06/15/23 10: AST 32 U/L (0-40) 06/15/23 10: ALT 27 U/L (0-41) 06/15/23 10: Alkaline Phosphatase 87 U/L (40-130) 06/15/23 10:29 Troponin T Baseline 20 ng/L (0-15) H 06/15/23 10: Troponin T 120 Minute 20.81 ng/L (0-15) H 06/15/23 12:29 Delta Troponin T 0.81 ABS# (0-10) 06/15/23 12:29 NT-Pro-B Natriuret Pep 42 pg/mL (0-125) 06/15/23 10:29 Total Protein 7.2 g/dL (6.6-8.7) 06/15/23 10: Albumin 4.1 g/dL (3.5-5.2) 06/15/23 10: Globulin 3.1 g/dL (1.3-4.6) 06/15/23 10:29 TSH 1.64 uIU/mL (0.27-4.20) 06/15/23 10:29 Urine Color Yellow (Yellow) 06/15/23 11:54 Urine Appearance Clear (CLEAR) 06/15/23 11:54 Urine pH 5 (5-7) 06/15/23 11:54 Ur Specific [place] 1.010 (1.005-1.030) 06/15/23 11:54 Urine Protein Trace (Negative) 06/15/23 11:54 Urine Glucose (UA) Norm (Normal) 06/15/23 11:54 Urine Ketones Negative (Negative) 06/15/23 11:54 Urine Blood Neg (Negative) 06/15/23 11:54 Urine Nitrate Negative (Negative) 06/15/23 11:54 Urine Bilirubin Neg (Negative) 06/15/23 11:54 Urine Urobilinogen 1 mg/dL (Negative) H 06/15/23 11:54 Ur Leukocyte Esterase Negative (Negative) 06/15/23 11:54 Urine RBC None /hpf (0-2) 06/15/23 11:54 Urine WBC 0-4 /hpf (0-5) H 06/15/23 11:54 Ur Squamous Epith Cells None /hpf (0-5) 06/15/23 11:54 Amorphous Sediment Not Reportable 06/15/23 11:54 Urine Bacteria Trace /hpf (NONE) 06/15/23 11:54 Hyaline Casts 5-10 /lpf H 06/15/23 11:54 Urine Mucus Trace /hpf 06/15/23 11:54 All radiology interpretation(s) finalized by discharge EKG Data EKG 1: Interpretation: Twelve-lead EKG obtained at 1034 and reviewed at 1034 demonstrates sinus tachycardia with a ventricular rate of 127, CA interval 138, QRS duration 93, QT 316 QTc [address] elevation or depression to demonstrate acute ischemia or infarction at present. Other EKG comments: Chest X-Ray 06/15/23 10:21 IMPRESSION: No acute findings. Discharge Plan Discharge Patient Disposition: Home Clinical Impression: Heart palpitations, Tachycardia Condition: Stable Prescriptions: No Action albuterol sulfate 90 mcg/actuation HFA aerosol inhaler 2 puff inhalation Q6H PRN (Reason: Shortness Of Breath Or Wheezing) cetirizine 10 mg tablet 10 mg PO DAILY PRN (Reason: Allergy Symptoms) Breztri Aerosphere 160-9-4.8 mcg/actuation HFA aerosol inhaler 2 inh inhalation BID Qty: 10.7 6RF omega 3-bms-uwv-fish oil [Fish Oil] 60-90-500 mg capsule 1 cap PO BID (DME) Auto C-Pap 6-16 CM H2O See Rx Instructions .Route .MEDSUPPLY Qty: 1 0RF Rx Instructions: As directed azelastine-fluticasone 137-50 mcg/spray spray,non-aerosol 1 spray intranasal BID Qty: 23 5RF Rx Instructions: administer into each nostril montelukast [Singulair] 10 mg tablet 10 mg PO DAILY Qty: 30 3RF atorvastatin 40 mg Tablet 40 mg PO DAILY chlorthalidone 25 mg Tablet 25 mg PO DAILY amlodipine 5 mg Tablet 5 mg PO DAILY metoprolol tartrate 50 mg Tablet 50 mg PO BID lisinopril 40 mg Tablet 40 mg PO DAILY allopurinol 100 mg tablet 100 mg PO DAILY Aspir-81 81 mg Tablet,Delayed Release (Dr/Ec) 81 mg PO DAILY omeprazole 20 mg Capsule,Delayed Release(Dr/Ec) 20 mg PO DAILY Discharge Orders: Discharge ED (Routine); Ordered 06/15/23 Ordered By: Jarvis Jerez Referrals: Lindsay Barbour MD [Primary Care Provider] - Discharge Diet: Advance as tolerated Discharge Activity: Resume usual activity Patient Instructions: Opioid Safety, Pain Management Activity Restrictions/Additional Instructions: Activity Restrictions/Additional Instructions: Thank you for choosing [facility] for your healthcare needs today. Please realize that you were seen in the Emergency Department and that we are providing you with an emergency medical screening exam and this may not be a complete and all inclusive of all the testing and or medical work-up that you may need to determine your ailment or severity of your illness. It is very important that you follow-up as instructed with your Primary care provider or Specialist for additional evaluation and to discuss your medical treatment plan. You may return to the Emergency Department should you have concerns or if your condition changes or worsens in any way. Coding Level of Care Code ED Narcotics And Vice Detective for Lopez Gonzalez
--- NOTE | 2023-06-15 10:21 | XRR_ITS ---
PROCEDURE INFORMATION: Exam: XR Chest Exam date and time: 06/15/2023 10:35 AM Age: 72 years old Clinical indication: Other: Palpitations TECHNIQUE: Imaging protocol: Radiologic exam of the chest. Views: 2 views. COMPARISON: CR XR chest 2V* [id number] 06/21/2021 3:20 PM FINDINGS: Lungs: No consolidation. Pleural spaces: No pleural effusion. No pneumothorax. Heart/Mediastinum: No cardiomegaly. Bones/joints: No acute findings. XR/XR chest 2V* [id number] IMPRESSION: No acute findings.
--- NOTE | 2023-06-15 10:22 | ECG_ITS ---
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 Measurements Intervals [place] Rate: 127 P: 60 MS: 135 QRS: 68 QRSD: 98 T: 62 QT: 317 QTc: 461 Interpretive Statements SINUS TACHYCARDIA WITH OCCASIONAL VENTRICULAR PREMATURE COMPLEXES NONSPECIFIC ST & T-WAVE ABNORMALITY No previous ECG available for comparison Electronically Signed On 06-16-2023 7:55:10 PRODUCT ENGINEER by Ellis Fitzgerald M.D. [id number]
[2023-06-15 10:34] LABS: Basophils % 0.3 %; Eosinophils # 0.1 10^3/uL (0.0-0.8); Eosinophils % 1.1 %; Hematocrit 46.5 % (37-53); Lymphocytes % 30.6 %; Mean Corpuscular HGB Conc 34.2 g/dL (30-55); Mean Corpuscular Hemoglobin 31.7 pg (27-33); Mean Corpuscular Volume 92.8 fl (82-101); Mean Platelet Volume 9.9 fL (7.4-10.4); Monocytes # 0.7 10^3/uL (0.2-0.9); Monocytes % 5.3 %; Neutrophils # 8.07 10^3/uL (1.8-7.7); Neutrophils % 62.5 %; Nucleated Red Blood Cells % 0 %; Platelet Count 244 10^3/cmm (157-399); Red Blood Count 5.01 10^6/uL (3.85-5.65); Red Cell Distribution Width 14.8 % (12.1-15.1); White Blood Count 12.93 10^3/uL (3.29-11.43)
[2023-06-15] MEDS: sodium chloride 0.9% 1,000 ML 999 ML IV (10:52)
[2023-06-15] MEDS: metoprolol tartrate 1 mg/1 mL SDV 5 mL 2.5 MG IVP (10:53)
[2023-06-15 10:58] LABS: Troponin(5th) Baseline 20 ng/L (0-15)
[2023-06-15 11:01] VITALS: BP 135/83; PULSE 106; RESP 15; O2SAT 98
[2023-06-15 11:05] LABS: Alanine Aminotransferase 27 U/L (0-41); Albumin Level 4.1 g/dL (3.5-5.2); Alkaline Phosphatase 87 U/L (40-130); Aspartate Amino Transferase 32 U/L (0-40); Blood Urea Nitrogen 23 mg/dL (8-23); Calcium 9.9 mg/dL (8.5-10.5); Carbon Dioxide 22 mmol/L (22-29); Chloride 103 mmol/L (98-107); Globulin 3.1 g/dL (1.3-4.6); Glucose 184 mg/dL (65-115); NT Pro B Type Natriuretic Pept 42 pg/mL (0-125); Osmolality Calculated 296 mOsm/kg (285-295); Sodium 139 mmol/L (136-145); Thyroid Stimulating Hormone 1.64 uIU/mL (0.27-4.20); Total Bilirubin 0.5 mg/dL (0.15-1.2); Total Protein 7.2 g/dL (6.6-8.7)
[2023-06-15 11:20] LABS: Anion Gap 17.9 (5-19); Potassium 3.9 mmol/L (3.5-5.1)
[2023-06-15] MEDS: metoprolol tartrate 1 mg/1 mL SDV 5 mL 5 MG IVP (11:29)
[2023-06-15 11:57] VITALS: BP 123/85; PULSE 99; RESP 16; O2SAT 100
[2023-06-15 12:10] VITALS: PULSE 98; RESP 16; O2SAT 97
--- NOTE | 2023-06-15 12:22 | ECG_ITS ---
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 Measurements Intervals [place] Rate: 127 P: 59 [place]: 138 QRS: 66 QRSD: 93 T: 62 QT: 316 QTc: 459 Interpretive Statements SINUS TACHYCARDIA NONSPECIFIC ST & T-WAVE ABNORMALITY No previous ECG available for comparison Electronically Signed On 06-16-2023 8:04:25 MACHINE ATTENDANT by Ellis Fitzgerald M.D. [id number]
[2023-06-15 12:23] LABS: Add Urine Microscopic? YES; Bilirubin Urine Neg (Negative); Blood Urine Neg (Negative); Glucose Urine UA Norm (Normal); Ketones Urine Negative (Negative); Leukocyte Esterase Urine Negative (Negative); Nitrate Urine Negative (Negative); Protein Urine Trace (Negative); Urine Appearance Clear (CLEAR); Urine Color Yellow (Yellow); Urobilinogen Urine 1 mg/dL (Negative); pH Urine 5 (5-7)
[2023-06-15 12:24] LABS: Add Urine Culture? No; Bacteria Urine TRACE /hpf; Mucus Urine TRACE /hpf; WBC Urine 0-4 /hpf (0-5)
[2023-06-15 13:12] VITALS: BP 123/85; PULSE 98; RESP 16; TEMP 37.1; O2SAT 97
[2023-06-15 13:13] LABS: Troponin 5 2HR 20.81 ng/L (0-15); Troponin 5 2HR Delta 0.81 ABS# (0-10)
== END 2023-06-15 13:13 | disposition home or self-care (01) ==
PROVIDERS: Emergency Provider Internal Medicine; PCP Family Medicine
DX: R00.0 Tachycardia, unspecified (principal); R00.2 Palpitations; Z79.82 Long term (current) use of aspirin; Z72.0 Tobacco use
CPT/HCPCS: 36415; 71046; 80053; 81001; 83880; 84443; 84484; 85025; 93005; 96374; 96376; 99285; J3490; J7030

== ENCOUNTER → 2023-07-16 09:00 | Outpatient (BNVA) | payer OTHER, SELFPAY | PROVIDERS: PCP Family Medicine; Visit Provider Internal Medicine Pulmonary Disease | DX: J45.909 Unspecified asthma, uncomplicated (principal); J84.10 Pulmonary fibrosis, unspecified; J31.0 Chronic rhinitis; J32.9 Chronic sinusitis, unspecified; G47.30 Sleep apnea, unspecified | CPT/HCPCS: 99204 ==

== ENCOUNTER → 2023-07-24 14:23 | Outpatient (BNVA) | payer OTHER, SELFPAY | PROVIDERS: PCP Family Medicine; Referring Provider Family Medicine; Visit Provider Internal Medicine Cardiovascular Disease | DX: I49.1 Atrial premature depolarization (principal); I49.3 Ventricular premature depolarization | CPT/HCPCS: 93246 ==

== ENCOUNTER → 2023-10-13 13:54 | Outpatient (BNVA) | payer OTHER, SELFPAY | PROVIDERS: PCP Family Medicine; Visit Provider Nurse Practitioner Family | DX: L57.0 Actinic keratosis (principal); L57.8 Other skin changes due to chronic exposure to nonionizing radiation; L81.4 Other melanin hyperpigmentation; D22.4 Melanocytic nevi of scalp and neck | CPT/HCPCS: 17000; 99213 ==

== ENCOUNTER → 2024-10-12 08:54 | Outpatient (BNVA) | payer OTHER, SELFPAY | PROVIDERS: PCP Family Medicine; Visit Provider Nurse Practitioner Family | DX: L82.1 Other seborrheic keratosis (principal); L57.8 Other skin changes due to chronic exposure to nonionizing radiation; L81.4 Other melanin hyperpigmentation; Z08 Encounter for follow-up examination after completed treatment for malignant neoplasm; Z85.828 Personal history of other malignant neoplasm of skin; L57.0 Actinic keratosis | CPT/HCPCS: 17000; 99213 ==

== ENCOUNTER 2024-11-03 11:38 | Emergency (ER) | payer OTHER, SELFPAY ==
[2024-11-03] VITALS (7 sets, daily range): BP systolic 100–138; BP diastolic 62–73; PULSE 69–87; RESP 16; TEMP 36.7; O2SAT 98–99
--- NOTE | 2024-11-03 12:03 | ECG_ITS ---
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
--- NOTE | 2024-11-03 12:24 | XR_ITS ---
WS: [id number] XR chest 1V portable [id number] REASON FOR EXAM: dyspnea/cough FINDINGS: Chest is unchanged compared to 06/15/2023. The heart and mediastinum are within normal limits. There is calcified granulomatous disease in both hemithoraces. No pulmonary parenchymal or pleural abnormality. Mild degenerative spondylosis of the thoracic spine for age. XR/XR chest 1V portable [id number] IMPRESSION: Stable chest without acute abnormality.
--- NOTE | 2024-11-03 12:24 | W.ED.GENADLT ---
HPI - General Adult General: Chief complaint: General Medical Stated complaint: va sent, low bp Time Seen by Provider: 11/03/24 12:23 History of Present Illness: 73-year-old male presents to the emergency room after being seen [facility] reportedly had elevated blood pressure although on arrival here in triage he is normotensive. Patient is on multiple Antihypertensive drugs has not had any changes recently. He reports his blood pressure seems to fluctuate quite a bit he also reports some chest discomfort with activity. He also has getting inside at times at rest usually last about 30 minutes he has had shortness of breath and diaphoresis with it at varying times but not consistently. He has no known history of coronary artery disease he states about 15 years ago he a stress test that was normal. Echocardiogram on the chart reviewed from a few years ago showed a normal ejection fraction. Patient is a smoker history for hypertension COPD has been told he has impaired glucose tolerance. At the time he is being seen is not have any chest pain. Associated symptoms: Deny chest pain, dyspnea or rash Related Data Home Medications ?Medication ?Instructions ?Recorded ?Confirmed chlorthalidone 25 mg tablet 25 mg PO DAILY 11/15/20 11/03/24 lisinopril 40 mg tablet 20 mg PO DAILY 11/15/20 11/03/24 albuterol sulfate 90 mcg/actuation 2 puff inhalation Q6H PRN 06/21/21 11/03/24 aerosol inhaler Shortness Of Breath Or Wheezing cetirizine 10 mg tablet 10 mg PO DAILY PRN Allergy Symptoms 06/21/21 11/03/24 omega 3-qqm-ezf-fish oil 60 mg-90 1 cap PO BID 10/11/21 11/03/24 mg-500 mg capsule (Fish Oil) allopurinol 100 mg tablet 200 mg PO DAILY 07/01/22 11/03/24 aspirin 81 mg tablet,delayed 81 mg PO DAILY 06/15/23 11/03/24 release amlodipine 10 mg tablet 10 mg PO DAILY 11/03/24 11/03/24 atorvastatin 80 mg tablet 80 mg PO QPM 11/03/24 11/03/24 metoprolol tartrate 100 mg tablet 100 mg PO BID 11/03/24 11/03/24 omeprazole 40 mg capsule,delayed 40 mg PO QAM 11/03/24 11/03/24 release Previous Rx's ?Medication ?Instructions ?Recorded Auto C-Pap #1 ea 09/05/22 azelastine 137 mcg-fluticasone 50 1 spray intranasal BID #23 grams 02/10/23 mcg/spray nasal spray budesonide 160 mcg-glycopyr 9 2 inh inhalation BID #10.7 grams 09/19/23 mcg-formot 4.8 mcg/actuation HFA inhaler (Breztri Aerosphere) montelukast 10 mg tablet 10 mg PO DAILY #30 tabs 02/20/24 (Singulair) lisinopril 10 mg tablet 10 mg PO DAILY #30 tabs 11/03/24 Allergies Allergy/AdvReac Type Severity Reaction Status Date / Time No Known Allergies Allergy Verified 07/16/23 09:54 Review of Systems Const: Denies: fever(s) or chills Card: Denies: chest pain Resp: Denies: dyspnea GI: Denies: abdominal pain : Denies: dysuria, urinary frequency or urinary urgency Musc: Denies: neck pain or back pain Skin/Breast: Denies: rash PFSH ED PFSH: Medical History (Updated 11/03/24 @ 15:10 by Vinay Mondragon DO) Asthma Pulmonary granulomatosis Sleep apnea Hx of colonic polyp Surgical History (Updated 11/03/24 @ 12:55 by Vinay Mondragon DO) S/P bilateral inguinal hernia repair (11/15/20) Status post colonoscopy Hx of nasal polypectomy Family History Father CAD (coronary artery disease) Family history of premature coronary artery disease Hypertension Hyperlipidemia Sister CAD (coronary artery disease) Mother Hypertension Denies family history of Diabetes Clotting disorder Dementia Psychiatric illness Chronic kidney disease (CKD) Suicide Anesthesia complication Bleeding disorder Lung disease Cancer Stroke Social History Smoking and tobacco/nicotine status: current some day tobacco/nicotine user (cigars/cigarettes) cigarettes [ Other cigarette details: 3 packs a week] Alcohol intake: never Substance/Drug Use: never Marital status: Current occupational status: employed Physical Exam Const: GENERAL APPEARANCE: cooperative ORIENTATION/CONSCIOUSNESS: Yes awake, Yes oriented to person, Yes oriented to place and Yes oriented to time HENMT: COMMON NORMALS: normocephalic, atraumatic and hearing grossly normal bilaterally HEAD & SCALP: normocephalic and atraumatic Resp: COMMON NORMALS: normal respiratory effort, No retractions and No use of accessory muscles AUSCULTATION: wheezes (Scant) Cardio: COMMON NORMALS: regular rate, regular rhythm and No murmurs present (Cardio) RATE: regular rate RHYTHM: regular rhythm GI: COMMON NORMALS: Soft to palpation and No hepatosplenomegaly present AUSCULTATION: Yes normoactive bowel sounds PALPATION: Yes Soft to palpation, No Tenderness to palpation present (GI), No Guarding due to palpation present (GI) and Yes No hepatosplenomegaly present Extremity: COMMON NORMALS: normal to inspection, capillary refill normal, no clubbing, cyanosis or edema, no calf tenderness and no pedal edema Neuro: SENSORIUM/ORIENTATION: Yes oriented to person, Yes oriented to place and Yes oriented to time Skin: COMMON NORMALS: no rashes or lesions noted GENERAL SKIN EXAM: no rashes or lesions noted Course Vital Signs: Vital signs: Vital Signs Temperature 98.0 F 11/03/24 11:56 Pulse Rate 79 11/03/24 15:36 Respiratory Rate 16 11/03/24 11:56 Blood Pressure 126/73 11/03/24 15:36 Pulse Oximetry 98 11/03/24 15:36 Oxygen Delivery Me thod Room Air 11/03/24 14:28 MDM - General Adult Medical Decision Making Labs and imaging reviewed EKGs did not show any acute changes cardiac enzymes trended negative. I discussed with on-call cardiology they recommend follow-up as an outpatient do not feel that inpatient is necessary at this time. He has some chronic kidney disease been worsening slightly over the last few years when comparing his labs let him stop the chlorthalidone decrease his lisinopril to 10 mg daily. Continue baby aspirin and metoprolol. Return if he has further problems. Differential Diagnosis Pneumonia pneumothorax acute coronary syndrome Medical Records I reviewed the patient's medical records. Lab Data I reviewed the patient's lab results. 11/03/24 12:18 11/03/24 12:18 Radiology Impressions Chest X-Ray 11/03/24 12:24 IMPRESSION: Stable chest without acute abnormality. Laboratory Results WBC 13.01 10^3/uL (3.29-11.43) H 11/03/24 12:18 RBC 4.40 10^6/uL (3.85-5.65) 11/03/24 12:18 Hgb 14.20 g/dL (11.27-16.99) 11/03/24 12:18 Hct 41.2 % (37-53) 11/03/24 12:18 MCV 93.6 fl (82-101) 11/03/24 12:18 MCH 32.3 pg (27-33) 11/03/24 12:18 MCHC 34.5 g/dL (30-55) 11/03/24 12:18 RDW 15.0 % (12.1-15.1) 11/03/24 12:18 Plt Count 206 10^3/cmm (157-399) 11/03/24 12:18 MPV 10.0 fL (7.4-10.4) 11/03/24 12:18 Neut % (Auto) 58.5 % 11/03/24 12:18 Lymph % (Auto) 29.4 % 11/03/24 12:18 [place] % (Auto) 9.8 % 11/03/24 12:18 Eos % (Auto) 1.5 % 11/03/24 12:18 Baso % (Auto) 0.3 % 11/03/24 12:18 Neut # (Auto) 7.62 10^3/uL (1.8-7.7) 11/03/24 12:18 Lymph # (Auto) 3.8 10^3/uL (0.8-4.8) 11/03/24 12:18 [place] # (Auto) 1.3 10^3/uL (0.2-0.9) H 11/03/24 12:18 Eos # (Auto) 0.2 10^3/uL (0.0-0.8) 11/03/24 12:18 Baso # (Auto) 0.0 10^3/uL (0.0-0.1) 11/03/24 12:18 Nucleated RBC % (auto) 0 % 11/03/24 12:18 Nucleated RBCs # 0.0 /100WBC 11/03/24 12:18 Sodium 141 mmol/L (136-145) 11/03/24 12:18 Potassium 4.1 mmol/L (3.5-5.1) 11/03/24 12:18 Chloride 102 mmol/L (98-107) 11/03/24 12:18 Carbon Dioxide 25 mmol/L (22-29) 11/03/24 12:18 Anion Gap 18.1 (5-19) 11/03/24 12:18 BUN 33 mg/dL (8-23) H 11/03/24 12:18 Creatinine 1.5 mg/dL (0.7-1.2) H 11/03/24 12:18 GFR Calculation Not Reportable 11/03/24 12:18 Glucose 128 mg/dL (65-115) H 11/03/24 12:18 Calculated Osmolality 301 mOsm/kg (285-295) H 11/03/24 12:18 Calcium 9.1 mg/dL (8.5-10.5) 11/03/24 12:18 Total Bilirubin 0.5 mg/dL (0.15-1.2) 11/03/24 12:18 AST 24 U/L (0-40) 11/03/24 12:18 ALT 27 U/L (0-41) 11/03/24 12:18 Alkaline Phosphatase 82 U/L (40-130) 11/03/24 12:18 Troponin T Baseline 11 ng/L (0-15) 11/03/24 12:18 Troponin T 120 Minute 10.62 ng/L (0-15) 11/03/24 14:14 Delta Troponin T -0.38 ABS# (0-10) L 11/03/24 14:14 Total Protein 6.7 g/dL (6.6-8.7) 11/03/24 12:18 Albumin 4.0 g/dL (3.5-5.2) 11/03/24 12:18 Globulin 2.7 g/dL (1.3-4.6) 11/03/24 12:18 All radiology interpretation(s) finalized by discharge EKG Data EKG 1: Interpretation: EKG November 03, 2024 1203 sinus rhythm with a rate of 78 WY interval [address] changes noted. There is a right partial bundle branch block. Computer generated interpretation: Chest X-Ray 11/03/24 12:24 IMPRESSION: Stable chest without acute abnormality. EKG 2: Interpretation: EKG November 03, 2024 1320 normal sinus rhythm with a rate of 70 WY interval of 125 QT 369 normal axis no acute ST changes noted. Right partial bundle branch block Computer generated interpretation: Chest X-Ray 11/03/24 12:24 IMPRESSION: Stable chest without acute abnormality. Discharge Plan Discharge Patient Disposition: Home Clinical Impression: Hypertension, Atypical chest pain Condition: Stable Prescriptions: New lisinopril 10 mg tablet 10 mg PO DAILY Qty: 30 0RF No Action albuterol sulfate 90 mcg/actuation HFA aerosol inhaler 2 puff inhalation Q6H PRN (Reason: Shortness Of Breath Or Wheezing) cetirizine 10 mg tablet 10 mg PO DAILY PRN (Reason: Allergy Symptoms) omega 1-gju-tou-fish oil [Fish Oil] 60-90-500 mg capsule 1 cap PO BID (DME) Auto C-Pap 6-16 CM H2O See Rx Instructions .Route .MEDSUPPLY Qty: 1 0RF Rx Instructions: As directed azelastine-fluticasone 137-50 mcg/spray spray,non-aerosol 1 spray intranasal BID Qty: 23 5RF Rx Instructions: administer into each nostril Breztri Aerosphere 160-9-4.8 mcg/actuation HFA aerosol inhaler 2 inh inhalation BID Qty: 10.7 12RF montelukast [Singulair] 10 mg tablet 10 mg PO DAILY Qty: 30 6RF chlorthalidone 25 mg Tablet 25 mg PO DAILY lisinopril 40 mg Tablet 20 mg PO DAILY allopurinol 100 mg tablet 200 mg PO DAILY aspirin [Aspir-81] 81 mg Tablet,Delayed Release (Dr/Ec) 81 mg PO DAILY atorvastatin 80 mg Tablet 80 mg PO QPM metoprolol tartrate 100 mg Tablet 100 mg PO BID omeprazole 40 mg Capsule,Delayed Release(Dr/Ec) 40 mg PO QAM amlodipine 10 mg Tablet 10 mg PO DAILY Discharge Orders: Discharge ED (Routine); Ordered 11/03/24 Ordered By: Vinay Mondragon Referrals: Lindsay Barbour MD [Primary Care Provider, Family Practice] Discharge Diet: Usual diet Discharge Activity: Limit activity as instructed Patient Instructions: Opioid Safety, Pain Management Activity Restrictions/Additional Instructions: Thank you for choosing [facility] for your healthcare needs today. It is very important that you follow up as instructed or that you return to the Emergency Department should you have concerns or if your condition changes or worsens in any way. You were seen in the emergency room with complaint of chest pain and abnormal blood pressures. Your EKGs did not show any acute changes and your cardiac enzymes are normal. We discussed your case with the on-call vp integrity and recommend that you decrease your lisinopril to 10 mg daily stop the chlorthalidone. Continue aspirin and metoprolol and your other previously prescribed medications. They are making arrangements for you to follow-up with the vp integrity they will arrange for further outpatient workup. At this time there is no acute coronary syndrome ongoing. Print Language: Kenyan Coding Level of Care Code ED Campus Executive Director for Lopez Gonzalez
[2024-11-03 12:30] LABS: Basophils % 0.3 %; Eosinophils # 0.2 10^3/uL (0.0-0.8); Eosinophils % 1.5 %; Hematocrit 41.2 % (37-53); Lymphocytes # 3.8 10^3/uL (0.8-4.8); Lymphocytes % 29.4 %; Mean Corpuscular HGB Conc 34.5 g/dL (30-55); Mean Corpuscular Hemoglobin 32.3 pg (27-33); Mean Corpuscular Volume 93.6 fl (82-101); Monocytes # 1.3 10^3/uL (0.2-0.9); Monocytes % 9.8 %; Neutrophils # 7.62 10^3/uL (1.8-7.7); Neutrophils % 58.5 %; Nucleated Red Blood Cells % 0 %; Platelet Count 206 10^3/cmm (157-399); White Blood Count 13.01 10^3/uL (3.29-11.43)
--- NOTE | 2024-11-03 12:32 | PC.PHAR ---
[facility]11/03/24 12:30pm
[2024-11-03 12:48] LABS: Troponin(5th) Baseline 11 ng/L (0-15)
[2024-11-03 12:49] LABS: Alanine Aminotransferase 27 U/L (0-41); Alkaline Phosphatase 82 U/L (40-130); Anion Gap 18.1 (5-19); Aspartate Amino Transferase 24 U/L (0-40); Blood Urea Nitrogen 33 mg/dL (8-23); Calcium 9.1 mg/dL (8.5-10.5); Carbon Dioxide 25 mmol/L (22-29); Chloride 102 mmol/L (98-107); Creatinine Clr Calc Pharmacy 52.0689; Globulin 2.7 g/dL (1.3-4.6); Glucose 128 mg/dL (65-115); Osmolality Calculated 301 mOsm/kg (285-295); Potassium 4.1 mmol/L (3.5-5.1); Sodium 141 mmol/L (136-145); Total Bilirubin 0.5 mg/dL (0.15-1.2); Total Protein 6.7 g/dL (6.6-8.7)
[2024-11-03] MEDS: sodium chloride 0.9% 1,000 ML 999 ML IV (13:13)
--- NOTE | 2024-11-03 13:20 | ECG_ITS ---
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
--- NOTE | 2024-11-03 14:47 | PC.PHAR ---
Pt is [place]-unable to get Medical Records to respond to us today. Called the [place] pharmacy and [facility]-verified pts' medications. Dose changes on several medications.
[2024-11-03 14:57] LABS: Troponin 5 2HR 10.62 ng/L (0-15)
[2024-11-03 14:58] LABS: Troponin 5 2HR Delta -0.38 ABS# (0-10)
== END 2024-11-03 15:39 | disposition home or self-care (01) ==
PROVIDERS: Emergency Provider Family Medicine; PCP Family Medicine
DX: I10 Essential (primary) hypertension (principal); R07.89 Other chest pain; Z79.82 Long term (current) use of aspirin; F17.210 Nicotine dependence, cigarettes, uncomplicated
CPT/HCPCS: 36415; 71045; 80053; 84484; 85025; 93005; 99285; J7030

== ENCOUNTER → 2024-11-12 09:09 | Outpatient (BNVA) | payer OTHER, SELFPAY | PROVIDERS: PCP Family Medicine; Visit Provider Internal Medicine Cardiovascular Disease | DX: R07.9 Chest pain, unspecified (principal); J84.10 Pulmonary fibrosis, unspecified; I10 Essential (primary) hypertension; E78.5 Hyperlipidemia, unspecified; R00.0 Tachycardia, unspecified | CPT/HCPCS: 36415; 80048; 83880; 99204 ==

== ENCOUNTER 2024-12-06 06:59 | Outpatient (CLI) | payer OTHER, SELFPAY ==
--- NOTE | 2024-12-06 07:17 | ECG_ITS ---
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 Interpretive Statements Lung unchanged pre/post procedure; No Symptoms Reported PROCEDURE: At the baseline, the EKG revealed sinus tachycardia with a diffuse nonspecific ST-T changes. Possible old inferior wall FL.. The baseline heart was 123 bpm with a blood pressue of 163/92 mm of Hg Lexiscan was infused over a period of 20 seconds. A total of 0.4 milligrams of Lexiscan was infused. The stress phase was continued for a total of 5 minutes. Heart rate at the end of the stress phase was 125 bpm with a blood pressure 143/66 mm of Hg. The EKG at the peak infusion revealed no significant changes. Sestamibi was injected 20 seconds after the Lexiscan infusion. Heart rate at the end of the recovery phase was 126 bpm with a blood pressure of 134/67 mm of Hg. occasional PVCs were noted during the recovery phase CONCLUSION: 1. No significant EKG changes with the LexiScan infusion 2. No LexiScan induced chest pain . Occasional isolated PVCs were noted during the recovery phase 3. Normal blood pressure and heart rate response 4. Sestamibi/sestamibi perfusion scan pending; see separate report. Electronically Signed On 12-06-2024 09:13:24 CDT by Ortega Bautista M.D. [id number] [id number]
[2024-12-06 07:18] VITALS: BMI 26.6
--- NOTE | 2024-12-06 07:18 | NMCV_ITS ---
NM brian perf SPECT r/s* [id number] Kraig Carranza Age: 73 Gender: M : 1950 Exam Date: 12/06/2024 08:10 Ordering Phys: Ortega Bautista MD ([email or web address]) Technologist: ROBBIE Cai Exam Location: [facility] Indications: cp STRESS TEST Please [facility] IMAGE PROTOCOL Rest/Stress 1 Lexiscan Day Radiopharmaceutical Dose (mCi) Administration Site Administered by Rest: Tc-99m 10.5 IV ROBBIE Cai Sestamibi Stress:Tc-99m 32.5 IV ROBBIE Galvan Sestamibi Rest: 06-Dec-2024 60 Discovery 630 Stress: 06-Dec-2024 15 Discovery 630 0.4mg Lexiscan. Images obtained in supine and prone position. SPECT RESULTS Technical Quality: Good Raw Data Analysis: Normal Image Corrections: No attenuation or motion correction applied Summed Stress Score: 1 Summed Rest Score: 0 Summed Difference Score: 1 PERFUSION FINDINGS Small area of slightly decreased tracer uptake was noted to the inferior wall region with some reversibility. FUNCTIONAL RESULTS (calculated via Gated SPECT) Stress Image LV EF (%): 72 Stress EDV (mL):64 TID: 1.03 Stress ESV (mL):18 FUNCTIONAL FINDINGS: Segmental wall motion analysis revealing no gross wall motion abnormalities IMPRESSIONS 1. Myocardial perfusion imaging revealing a small area of reversible defect in the inferior wall region suggestive of ischemia in the distribution of the right coronary artery. 2. Normal LV ejection fraction 72%. 3. LV wall motion analysis revealing no gross wall motion abnormalities. 4. Normal LV volume No similar previous studies are available for comparison Dr Ortega Bautista MD [facility] (Electronically Signed) Final Date: 06 December 2024 12:44 S
--- NOTE | 2024-12-06 08:35 | PC.NURSE ---
When hooked up to the EKG the patient's HR was 120-130. ST with occ PVCs. BP 163/92. New orders received to change the Exercise sestamibi stress test to a Lexiscan sestamibi stress test. The patient was made aware of the change and agreed to proceed. The patient was aslo instructed to resume his daily metoprolol and amlodipine as soon as he gets home. He verbalized his understanding.
[2024-12-06 09:13] VITALS: BP 134/67; PULSE 126
== END 2024-12-06 07:00 | disposition home or self-care (01) ==
LOC: CDL 07:00
PROVIDERS: PCP Family Medicine; Visit Provider Internal Medicine Cardiovascular Disease
DX: R07.9 Chest pain, unspecified (principal); I49.3 Ventricular premature depolarization
CPT/HCPCS: 36415; 78452; 93017; 96374; A9500; J2785

== ENCOUNTER → 2024-12-31 09:27 | Outpatient (BNVA) | payer OTHER, SELFPAY | PROVIDERS: PCP Family Medicine; Visit Provider Nurse Practitioner Family | DX: R07.9 Chest pain, unspecified (principal); R06.02 Shortness of breath; I10 Essential (primary) hypertension; E78.5 Hyperlipidemia, unspecified; J84.10 Pulmonary fibrosis, unspecified; Z79.82 Long term (current) use of aspirin; F17.210 Nicotine dependence, cigarettes, uncomplicated | CPT/HCPCS: 36415; 80048; 83880; 85025; 85610; 85730; 99214 ==

== ENCOUNTER 2025-01-10 07:13 | Outpatient (CLI) | payer OTHER, SELFPAY ==
[2025-01-10 07:30] VITALS: BP 146/91; PULSE 71; RESP 18; TEMP 36.9; O2SAT 98; BMI 26.6
--- NOTE | 2025-01-10 07:30 | XACV_ITS ---
Exam Room: 2 Ht: 188 cm Wt: 94 kg BSA: 2.22 m2 Gender: Male : 1950 Any Known Allergies: No known allergies Exam Priority: Routine Procedure(s): Procedure Description: Diagnostic procedure Procedure Description: PCI procedure Procedure Description: Drug Eluting Coronary Stent Procedure Description: PTCA Procedure Description: Miscellaneous Procedure Description: ACT Procedure Description: Coronary Angiography Diagnostic Cath Status: Elective Diagnostic Findings * INDICATION: Worsening angina/ abnormal stress test. * Left Main has no significant disease. * Circumflex has no significant disease. * Mid Right Coronary Artery: severe 90% stenosis, LA: 3 flow. * Proximal Left Anterior Descending: minimal 30% stenosis, LA: 3 flow. * Coronary angiography shows right dominance. PCI Status: Elective PCI Indication: Other Interventional Findings * Mid Right Coronary Artery: 90% stenosis treated with a AB TREK 3.50X15 RX BALLOON, ARCHANA Guillen DEVORA 4.0X34 FINA, and ARCHANA RUSH EUPHORA RX [id number] BALLOON. 0% residual stenosis, LA: 3 flow. * Procedure detail:We engaged RCA with JR4 guide catheter. Heparin was administered to maintain anticoagulation. Run-through wire was used to cross the stenosis. We predilated the mid RCA severe stenosis with 3.5 x 15 mm semicompliant balloon. This was followed by placement of a 4.0 x 34 mm resolute Devora drug-eluting stent. There was residual proximal stenosis that was treated with 4.0 x 12 mm resolute Wolcott drug-eluting stent. Stents were postdilated with 4.5 x 20 mm NC balloon at high pressure. At this time final angiogram was performed that showed excellent stent expansion, no residual stenosis and LA-3 flow. Guidewire and guide catheter were removed. Patient left the Job Service Consultant in a stable condition.. * Proximal Right Coronary Artery: 70% stenosis treated with a MDT R DEVORA 4.0X12 FINA. 0% residual stenosis, LA: 3 flow. Conclusions 1. Severe proximal to mid RCA stenosis status post PCI with 2 stents.. 2. Proximal Right Coronary Artery was treated with a Drug Eluting Stent. 3. Mid Right Coronary Artery was treated with a Balloon, Drug Eluting Stent, and Balloon. Recommendations * Dual antiplatelet therapy with aspirin and plavix for atleast 1 year. * High intensity statin therapy. * Outpatient cardiology follow up in 2 weeks. Interventional RX Recommendation: PCI w/o planned CABG Diagnostic RX Recommendation: PCI w/o planned CABG Anticoagulation: Heparin Pressures Phase:Rest AO : 92 / 63 ( 76 ) @ 9:54:00 AM 104 / 62 ( 82 ) @ 10:03:00 AM 94 / 61 ( 76 ) @ 10:20:00 AM Clinical Evaluation EBL: 5mL-10mL Procedural Details Procedure Consent Obtained. Pre-Procedure Time Out. Identified patient by full name and date of as verbalized by the patient/guarantor. Does the consent match the physician's order: Yes. Accurate & Complete Informed Consent: Yes. Inpatient/Outpatient History & Physical on Chart: Yes. If H&P is completed, is and addenduem needed: No; If yes, is the addendum complete: N/A. Visualize and Verify Site with Patient/Guarantor: N/A. Relevant Radiology Images available: Yes. The risks, benefits, and alternatives of sedation and/or procedure were discussed by physician. The patient agrees to continue. Procedure started. [facility] Clinical Fraility Score: 3: Managing Well. Job Service Consultant Indications: New Onset Angina/Abnormal stress test. Chest Pain Symptom Assessment: Typical Angina Symptoms. Cardiovascular Instability: No. Correct patient, site and procedure confirmed by cath team. PERRLA. Strong, equal hand machine castings plasterer bilaterally. Lungs clear x 5 lobes. IV Site on Arrival: 20 gauge in the left anticubital. IV Fluids: 0.9% NaCl at KVO. 0 mL infused prior to roofing laborer. Pre Procedural Pulses: bilateral dorsalis pedis was 3+. Pre Procedural Pulses: bilateral posterior tibial was 3+. Pre Procedural Pulses: bilateral radial was 3+. Oxygen started at 2liters/min via nasal canula. right groin was prepped with chloroprep then draped in the usual sterile fashion. right radial was prepped with chloroprep then draped in the usual sterile fashion. Physician notified. Baseline sample Acquired. HR: 72 BPM. Patient's family in CPRU room #2. Dr. Fitzgerald will update at the completion of the procedure. Equipment: 6F - Radial. Cardiac Cath Pack. ACIST Manifold Kit Model BT 2000. Heparinized Saline (2 units/mL), 1000 mL bag. Physician arrived. Physician scrubbed in. Immediate Pre-Procedure Time Out. Correct Patient: Yes; Correct Procedure: Yes; Correct Site: Yes; Correct Patient Position: Yes; Correct Supplies: Yes; Dried Flammable Prep: Yes; Blood Products Available: N/A;. Lidocaine 1% infiltrated to the right radial. Arterial access obtained. A 5 sammarinese TIG catheter in over the exchange J wire. Multiple views taken of left coronary artery. Catheter redirected to the RCA. Catheter removed over the exchange J wire. A 5 sammarinese JR4 catheter in over the exchange J wire. Multiple views taken of right coronary artery. Catheter removed over the exchange J wire. PCI Indication: CAD (without ischemic symptoms). 6 sammarinese JR 4 guide catheter was inserted over the wire. Runthrough guidewire was advanced through the guide catheter to lesion in the mid RCA. Inflation number : 1 A AB TREK 3.50X15 RX BALLOON was prepped and advanced across the Mid RCA , then inflated to 8 GIULIA for 0:08 seconds. Balloon out. Guideliner in OTW. Inflation number: 2 The AB TREK 3.50X15 RX BALLOON was reinflated across the Mid RCA, to 12 GIULIA for 0:19 seconds. Balloon out. Inflation Number : 3 A ARCHANA Giullen DEVORA 4.0X34 FINA -Lot Number# [id number] Exp. was prepped and advanced across the Mid RCA. The stent was deployed at 12 GIULIA for 0:21 seconds. Stent balloon out over wire. Guideliner out OTW. Results checked. Inflation Number : 1 A MDT R DEVORA 4.0X12 FINA -Lot Number# [id number] Exp. was prepped and advanced across the Prox RCA. The stent was deployed at 12 GIULIA for 0:15 seconds. Inflation number: 2 The stent balloon was then re-inflated across the Prox RCA to 12 GIULIA for 0:06 seconds. Stent balloon out over wire. Inflation number : 4 A MDT NC EUPHORA RX [id number] BALLOON was prepped and advanced across the Mid RCA , then inflated to 14 GIULIA for 0:19 seconds. Inflation number: 5 The MDT NC EUPHORA RX [id number] BALLOON was reinflated across the Mid RCA, to 18 GIULIA for 0:14 seconds. Balloon out. Results checked. Wire out. ACT drawn. Results 367 seconds. Therapeutic limits - pre-heparin administration 90-150 seconds and monitoring heparin during a vascular procedure >250 seconds. Guide catheter out over the exchange J wire. Dr. Fitzgerald scrubbed out. A TR Band was successful obtaining hemostatsis at the Right Radial artery insertion site. Post Procedure: Pulses reassessed and unchanged. PERRLA. Strong, equal hand machine castings plasterer bilaterally. No VTE prophylaxis required. Medication's Wasted: Lidocaine 1% = 18 mL. Medication's Wasted: Nitro = 49.8 mg. Medication's Wasted: Heparin = 2000 units. Medication's Wasted: Other = Fentanyl 25 mcg. Total IV fluids: 50 mL. Post-op diagnosis: FINA to Mid RCA x 1 amd Prox RCA x 1. Complications: none. Estimated blood loss: 5mL-10mL. Responsiveness - Normal response to verbal stimuli; alert and oriented, PERRLA. Airway - Unaffected, no intervention required; spontaneous ventilation. Circulation: W/N/L, pulses unchanged. Nausea/Vomiting: No. Vital chart was stopped. Procedure completed. Patient transferred by wheelchair to 1st floor. Access Site Site: Right Radial artery Sheath Size: 6 Fr Hemostasis Method: TR Band Hemostasis Success: Successful Procedure Medications Start: 8:48 AM Stop: 8:48 AM Medication: Versed Amount: 1 mg Route: I.V. Start: 8:48 AM Stop: 8:48 AM Medication: Fentanyl Amount: 50 mcg Route: I.V. Start: 8:52 AM Stop: 8:52 AM Medication: Nitrogylcerin Amount: 200 mcg Route: I.A. Start: 8:53 AM Stop: 8:53 AM Medication: Heparin Amount: 5000 units Route: I.V. Start: 9:01 AM Stop: 9:01 AM Medication: Heparin Amount: 4000 units Route: I.V. Start: 9:01 AM Stop: 9:01 AM Medication: Versed Amount: 1 mg Route: I.V. Start: 9:19 AM Stop: 9:19 AM Medication: Fentanyl Amount: 25 mcg Route: I.V. Start: 9:23 AM Stop: 9:23 AM Medication: Plavix Amount: 600 mg Route: P.O. I, the attending physician, have reviewed and verified all procedure medications. Yes, all medications given per verbal order History/Risk Factors Hypertension: Yes Dyslipidemia: Yes Peripheral Arterial Disease (PAD): No Myocardial Infarction (PA): No Obesity: No Renal Disease: No Prior Interventions PCI: No CABG: No Valve Surgery: No Report Signatures Finalized by Ellis Fitzgerald MD on 01/10/2025 09:41 AM
--- NOTE | 2025-01-10 08:30 | W.PM.OPSUD ---
Surgery/Procedure H&P Update DATE OF PROCEDURE: January 10, 2025 DATE H&P PERFORMED: 12/31/24 H&P UPDATE INFORMATION: I have reviewed H&P completed within last 30 days, I have examined patient prior to procedure and No changes to prior documentation PREOP DIAGNOSIS: Chest pain/ abnormal stress test PRIMARY INDICATION FOR PROCEDURE: Chest pain/ abnormal stress test PLANNED PROCEDURE: Operation Date: 01/10/25 08:30 Proposed Procedures p Cardiac Catheterization(Left) - Ellis Fitzgerald M.D Possible percutaneous coronary intervention PATIENT REASSESSED PRIOR TO SEDATION, WITH NO CHANGE NOTED: Yes PHYSICAL EXAM: alert, oriented x 3, clear to auscultation bilaterally and regular rate & rhythm AIRWAY EVAL/ANESTHESIA PLAN: normal airway, ASA III, Monitored Anesthesia, Local Anesthesia, Risks, benefits & alternatives of sedation and/or procedure discussed and Patient agrees to continue as planned ADDITIONAL INFORMATION: Moderate sedation
[2025-01-10 09:45] VITALS: BMI 30.1
[2025-01-10 10:10] VITALS: BP 128/76; PULSE 74; RESP 16; O2SAT 97
--- NOTE | 2025-01-10 10:15 | PC.NURSE ---
received from cardiac process laboratory specialist via w/c at 0940.report received.pt is alert and awake and oriented x 4.denies pain at present.sr on monitor.right radial tr band is on and infated.right hand is warm to touch and with brisk capillary refill.palpable radial pulse noted distal to tr band.no hematoma noted.pt instructed in activity restrictions s/p radial artery procedure...and instructed to notify staff for any bleeding,pain,numbness,sob,or for any concerns at all.pt verb understanding of instructions
[2025-01-10 15:58] VITALS: BP 139/72; PULSE 70; RESP 20; TEMP 36.8; O2SAT 98
--- NOTE | 2025-01-10 16:14 | PC.NURSE ---
tr band slowly deflated and eventually removed at 1430.no hematoma noted.right hand remains warm to touch and with brisk capillary refill.palpable radial pulse noted.site dressed with 2x2 gauze and secured with biocclusive drsg.pt instructed in activity restrictions s/p tr band removal...and instructed to notify staff for any bleeding,pain,numbness,sob,or for any concerns at all.pt verb understanding of instructions
[2025-01-10 19:44] VITALS: BP 146/74; PULSE 69; RESP 18; TEMP 36.9; O2SAT 96
[2025-01-10 22:00] VITALS: PULSE 77
[2025-01-11] VITALS: BP 143/68; PULSE 82; RESP 23; TEMP 36.7; O2SAT 97
[2025-01-11 03:13] LABS: Hematocrit 39.1 % (37-53); Hemoglobin 13.20 g/dL (11.27-16.99); Mean Corpuscular HGB Conc 33.8 g/dL (30-55); Mean Corpuscular Hemoglobin 30.5 pg (27-33); Mean Corpuscular Volume 90.3 fl (82-101); Nucleated Red Blood Cells % 0 %; Platelet Count 226 10^3/cmm (157-399); Red Blood Count 4.33 10^6/uL (3.85-5.65); White Blood Count 9.06 10^3/uL (3.29-11.43)
[2025-01-11 03:46] LABS: Anion Gap 14.6 (5-19); Blood Urea Nitrogen 14 mg/dL (8-23); Calcium 8.8 mg/dL (8.5-10.5); Carbon Dioxide 23 mmol/L (22-29); Chloride 105 mmol/L (98-107); Creatinine Clr Calc Pharmacy 79.4652; Glucose 105 mg/dL (65-115); Osmolality Calculated 289 mOsm/kg (285-295); Potassium 3.6 mmol/L (3.5-5.1); Sodium 139 mmol/L (136-145)
[2025-01-11 04:00] VITALS: BP 151/83; PULSE 70; RESP 30; TEMP 36.7; O2SAT 96
[2025-01-11 05:31] VITALS: PULSE 83
[2025-01-11 08:00] VITALS: BP 170/88; PULSE 91; RESP 20; TEMP 36.9; O2SAT 95
--- NOTE | 2025-01-11 09:50 | PC.CHAP ---
Pastoral Care Encounter/Spiritual Assessment Type of Contact [] Declined roster clerk visit [] Patient/Family/Request visit [] Outpatient visit [] Follow-up visit [] Physician referral [] Code/Alert [x] Routine visit [] Staff referral [] Actively dying [] Patient sleeping [] Family support [] [] Out of room [] Palliative care [] [] Receiving care in room [] Pre-surgical visit [] Trauma [] Long length of stay [] ICU visit [] Other: Relational/Emotional Strength [x] Patient feels connected with others/family/visitors/staff [] Distress [] Loneliness/isolation [] Abandonment Spirituality of Patient [x] Person of Arianna [] Attends Moravian of their Arianna [x] Believes in Prayer [] Reads Bible or Tenriism materials [] There are Spiritual issues to be addressed Razor Grinder Interventions [x] Prayer [x] Active listening [x] Non-anxious presence [x] Spiritual/emotional support [] Crisis/trauma care [] Spiritual counseling [] Bereavement support [] Provided bereavement packet [] Provided Bible/devotional materials [] Provided toy/stuffed animal, coloring book to patient or family member [] Provided Communion [] Anointing/[place] [] Salvation [x] Completed spiritual assessment [] Other: Impact on Illness or Injury [] Angry [] Fearful [] Anxious [] Often cries [] Exhaustion [] Unable to work [] Unable to attend mosque [] Unable to walk/stand [] Unable to read [] Unable to drive [] Unable to eat/drink [] Unable to sleep [] Unable to be with family [] Patient intubated [] Other: Summary Time spent with patient 5 min
--- NOTE | 2025-01-11 09:52 | P.DS_ITS ---
<Statement entered by Ellis Fitzgerald M.D - 01/12/25 13:06> Patient was cared for in conjunction with an advanced practice practitioner.? I reviewed the chart and all pertinent data including imaging, telemetry, and laboratory results.? I discussed the patient in detail with the advanced practice practitioner.? Please see?their note for discharge summary, testing results and agreed upon plan of care for the patient. Discharge Providers Date of Discharge: January 11, 2025 Attending Provider at Admission: Ortega Bautista MD Attending Provider at Discharge: Dr Fitzgerald Primary Care Provider: Lindsay Barbour MD Reason for Visit Reason for Visit: R07.9 Brief History: Patient is a 74-year-old male with past medical history of asthma, sleep apnea, pulmonary granulomatosis, hypertension who had been experiencing chest pain, fluctuating blood pressure and shortness of breath stress test was performed which showed small reversible defect suggesting ischemia in the distribution of the RCA. Hospital Course Hospital Course He was brought in for coronary angiogram: No significant disease of the left main, circumflex. Mid RCA contained significant stenosis treated with balloon angioplasty and FINA x 1. The proximal LAD contained minimal 30% stenosis. He has done well overnight, no complications with right radial cath site. Creatinine 1.0 this morning. Will plan to discharge home with aspirin and Plavix, continue atorvastatin, lisinopril, metoprolol. Follow-up with cardiology clinic in 7 to 10 days. Physical Exam Const: COMMON NORMALS: no acute distress and patient oriented x3 GENERAL APPEARANCE: cooperative ORIENTATION/CONSCIOUSNESS: Yes awake, Yes oriented to person, Yes oriented to place and Yes oriented to time Chest: COMMONS NORMALS: normal inspection of the chest and normal palpation of entire chest wall CHEST: Yes Symmetrical chest wall rise Resp: COMMON NORMALS: normal respiratory effort, No retractions, No use of accessory muscles and clear to auscultation bilaterally AUSCULTATION: clear to auscultation bilaterally Cardio: COMMON NORMALS: regular rate, regular rhythm, S1 normal heart sound present, S2 normal heart sound present, No gallops present (Cardio), No clicks present (Cardio), No murmurs present (Cardio) and No rub (Cardio) RATE: regular rate RHYTHM: regular rhythm HEART SOUNDS: S1 normal heart sound present and S2 normal heart sound present PERIPHERAL PULSES: radial pulses p resent positive right 2+ and femoral pulses present positive right 2+ Neuro: COMMON NORMALS: patient oriented x3 and moves all extremities SENSORIUM/ORIENTATION: Yes oriented to person, Yes oriented to place and Yes oriented to time Skin: WOUNDS: Yes surgical site (no hematoma palpable) Details: no odor Discharge Data Studies Completed and Pending Completed Studies During Hospitalization Category Date Time Status DEPUTY SHERIFF LIEUTENANT request for service Routine Exams 01/10/25 07:30 Completed Laboratory Results WBC 9.06 10^3/uL (3.29-11.43) 01/11/25 03:03 RBC 4.33 10^6/uL (3.85-5.65) 01/11/25 03:03 Hgb 13.20 g/dL (11.27-16.99) 01/11/25 03:03 Hct 39.1 % (37-53) 01/11/25 03:03 MCV 90.3 fl (82-101) 01/11/25 03:03 MCH 30.5 pg (27-33) 01/11/25 03:03 MCHC 33.8 g/dL (30-55) 01/11/25 03:03 RDW 14.7 % (12.1-15.1) 01/11/25 03:03 Plt Count 226 10^3/cmm (157-399) 01/11/25 03:03 MPV 9.5 fL (7.4-10.4) 01/11/25 03:03 Neut % (Auto) 59.4 % 01/11/25 03:03 Lymph % (Auto) 27.3 % 01/11/25 03:03 [place] % (Auto) 9.8 % 01/11/25 03:03 Eos % (Auto) 2.9 % 01/11/25 03:03 Baso % (Auto) 0.4 % 01/11/25 03:03 Neut # (Auto) 5.38 10^3/uL (1.8-7.7) 01/11/25 03:03 Lymph # (Auto) 2.5 10^3/uL (0.8-4.8) 01/11/25 03:03 [place] # (Auto) 0.9 10^3/uL (0.2-0.9) 01/11/25 03:03 Eos # (Auto) 0.3 10^3/uL (0.0-0.8) 01/11/25 03:03 Baso # (Auto) 0.0 10^3/uL (0.0-0.1) 01/11/25 03:03 Nucleated RBC % (auto) 0 % 01/11/25 03:03 Nucleated RBCs # 0.0 /100WBC 01/11/25 03:03 Sodium 139 mmol/L (136-145) 01/11/25 03:03 Potassium 3.6 mmol/L (3.5-5.1) 01/11/25 03:03 Chloride 105 mmol/L (98-107) 01/11/25 03:03 Carbon Dioxide 23 mmol/L (22-29) 01/11/25 03:03 Anion Gap 14.6 (5-19) 01/11/25 03:03 BUN 14 mg/dL (8-23) 01/11/25 03:03 Creatinine 1.0 mg/dL (0.7-1.2) 01/11/25 03:03 GFR Calculation Not Reportable 01/11/25 03:03 Glucose 105 mg/dL (65-115) 01/11/25 03:03 Calculated Osmolality 289 mOsm/kg (285-295) 01/11/25 03:03 Calcium 8.8 mg/dL (8.5-10.5) 01/11/25 03:03 Vitals Last Vital Signs Temp 98.5 F 01/11/25 08:00 Pulse 91 01/11/25 08:00 Resp 20 H 01/11/25 08:00 BP 170/88 01/11/25 08:00 Pulse Ox 95 01/11/25 08:00 O2 Del Method Room Air 01/11/25 08:00 Discharge Plan Discharge Patient Disposition: Home Prescriptions: New clopidogrel 75 mg Tablet 75 mg PO DAILY Qty: 90 3RF Continued albuterol sulfate 90 mcg/actuation HFA aerosol inhaler 2 puff inhalation Q6H PRN (Reason: Shortness Of Breath Or Wheezing) cetirizine 10 mg tablet 10 mg PO DAILY PRN (Reason: Allergy Symptoms) nitroglycerin 0.4 mg tablet, sublingual 0.4 mg sublingual Q5M PRN (Reason: chest pain) 30 Days Qty: 30 3RF Rx Instructions: until response; do not exceed 3 doses per episode isosorbide mononitrate 30 mg tablet extended release 24 hr 30 mg PO DAILY Qty: 30 1RF omega 4-zwy-jog-fish oil [Fish Oil] 60-90-500 mg capsule 1 cap PO BID (DME) Auto C-Pap 6-16 CM H2O See Rx Instructions .Route .MEDSUPPLY Qty: 1 0RF Rx Instructions: As directed azelastine-fluticasone 137-50 mcg/spray spray,non-aerosol 1 spray intranasal BID Qty: 23 5RF Rx Instructions: administer into each nostril Breztri Aerosphere 160-9-4.8 mcg/actuation HFA aerosol inhaler 2 inh inhalation BID Qty: 10.7 12RF montelukast [Singulair] 10 mg tablet 10 mg PO DAILY Qty: 30 6RF chlorthalidone 25 mg Tablet 25 mg PO DAILY allopurinol 100 mg tablet 200 mg PO DAILY aspirin [Aspir-81] 81 mg Tablet,Delayed Release (Dr/Ec) 81 mg PO DAILY atorvastatin 80 mg Tablet 80 mg PO QPM metoprolol tartrate 100 mg Tablet 100 mg PO BID omeprazole 40 mg Capsule,Delayed Release(Dr/Ec) 40 mg PO QAM amlodipine 10 mg Tablet 10 mg PO DAILY lisinopril 10 mg tablet 10 mg PO DAILY Qty: 30 0RF Discharge Order = DC NOW: Discharge Order (Routine); Ordered 01/11/25 Ordered By: Ella Castle Referrals: Lindsay Barbour MD [Primary Care Provider, Family Practice] - 4-7 days Sofi Mirza NP [Nurse Practitioner, Cardiology] - 01/19/25 8:00 am Diet: Cardiac Activity: Increase activity as tolerated Patient Instructions: Coronary Angioplasty (DC), Heart Catheterization (DC), Chest Pain Stoplight, Post Angiogram Home Care Instructions Activity Restrictions/Additional Instructions: No lifting over 5 pounds with right arm for the next 4 days. Print Language: Yoruba Discharge Attestations Time Spent in Discharge Care*: less than 30 min Quality Metrics Clinical Quality Measures [ No reported AMI, CVA or VTE this stay] Coding Level of Care Code Acute Code for Lopez Lisa
== END 2025-01-11 11:00 | disposition home or self-care (01) ==
LOC: CCL 07:17 → CSU 09:30
PROVIDERS: Internal Medicine; Nurse Practitioner Family; PCP Family Medicine; Visit Provider Internal Medicine Cardiovascular Disease
DX: I25.118 Atherosclerotic heart disease of native coronary artery with other forms of angina pectoris (principal); I10 Essential (primary) hypertension; E78.5 Hyperlipidemia, unspecified; Z79.82 Long term (current) use of aspirin; K21.9 Gastro-esophageal reflux disease without esophagitis; J45.909 Unspecified asthma, uncomplicated; G47.30 Sleep apnea, unspecified; J84.10 Pulmonary fibrosis, unspecified; F17.210 Nicotine dependence, cigarettes, uncomplicated
CPT/HCPCS: 36415; 80048; 85025; 85347; 93454; 99152; 99153; C1725; C1769; C1874; C1887; C1894; C9600; J1644; J2250; J3010; J3490; J7030; J9999; Q0163; Q9967

== ENCOUNTER → 2025-01-19 07:29 | Outpatient (BNVA) | payer OTHER, SELFPAY | PROVIDERS: PCP Family Medicine; Visit Provider Nurse Practitioner Family | DX: I25.10 Atherosclerotic heart disease of native coronary artery without angina pectoris (principal); I10 Essential (primary) hypertension; E78.5 Hyperlipidemia, unspecified; J84.10 Pulmonary fibrosis, unspecified; R06.2 Wheezing; Z79.02 Long term (current) use of antithrombotics/antiplatelets; Z79.82 Long term (current) use of aspirin; Z95.5 Presence of coronary angioplasty implant and graft; Z87.891 Personal history of nicotine dependence | CPT/HCPCS: 36415; 80053; 85025; 99213 ==